=== PATIENT | male | born 1935 | race Caucasian/White ===

== ENCOUNTER 2016-07-27 16:27 | Observation (INO) ==
[2016-07-27] MEDS ORDERED: Aspirin 81 MG TAB.CHEW PO ONE (16:42)
[2016-07-27] MEDS ORDERED: Nitroglycerin 1 INCH/GM PACKET TP ONE (16:43)
--- NOTE | 2016-07-27 16:47 | Emergency Department Note ---
Disposition Clinical Impression: Chest pain Qualifiers: Chest pain type: unspecified Qualified Code(s): R07.9 - Chest pain, unspecified Hypertension Qualifiers: Hypertension type: unspecified secondary hypertension Qualified Code(s): I15.9 - Secondary hypertension, unspecified Disposition: Admitted As Inpatient Condition: Fair Referrals: Stef Javier DO [Primary Care Provider] - Forms: Work/School Release, ED Satisfaction Letter Time of Disposition: 18:20 Chest Pain HPI - General Chief Complaint: ED General Medical Stated Complaint: High BP Time Seen by Provider: 07/27/16 16:37 Source: patient Mode of arrival: ambulatory Limitations: no limitations Vital Signs Reviewed: Yes Nursing Notes Reviewed: Yes - History of Present Illness HPI Narrative: 80-year-old male with a history of previous stent who comes in complaining of some intermittent chest pain. Patient states he had to take 3 nitros with some improvement in his pain. Son relates that this is what happened prior to him requiring stent placement. Pt complaint: chest pain Onset (ago): day(s) Duration: intermittent Onset: during rest Pain Location: substernal, left chest Severity scale (1-10): 8 Quality: tightness, aching Pain Radiation: none Improves with: nitroglycerin Worsens with: nothing Treatments prior to arrival chest pain: nitroglycerin - Related Data Home Medications Medication Instructions Recorded Confirmed Ranitidine HCl [Acid Audiology Assistant] 150 mg PO DAILY 06/10/16 06/10/16 Previous Rx's Medication Instructions Recorded Aspirin 81 mg PO DAILY tab.chew 06/13/16 Clopidogrel [Plavix] 75 mg PO DAILY #30 tablet 06/13/16 Lisinopril [Zestril] 5 mg PO DAILY #30 tablet 06/13/16 Metoprolol XL (24 HR) Succ [Toprol 50 mg PO DAILY #30 tab.er.24h 06/13/16 Xl] Nitroglycerin 0.4 mg SL PRN PRN #30 tab.subl 06/13/16 Allergies Allergy/AdvReac Type Severity Reaction Status Date / Time Aympncx-Opt-Gfr Reductase Allergy Intermediate Itching Verified 06/10/16 13:22 Inhibitor [Statins] cephalexin [From Keflex] Allergy Itching Verified 06/10/16 13:22 Constitutional: Denies: fever, chills, weakness, weight change Eyes: Denies: eye pain, eye discharge, vision change ENT ED: Denies: ear pain, throat pain, dental pain, hearing loss, epistaxis, congestion, dysphagia Cardiovascular: Reports: chest pain. Denies: palpitations, dyspnea on exertion , edema, syncope Respiratory: Denies: cough, dyspnea, wheezes, hemoptysis, stridor Gastrointestinal: Denies: abdominal pain, nausea, vomiting, diarrhea, constipation, hematemesis, melena, hematochezia Genitourinary: Denies: urgency, dysuria, frequency, hematuria Musculoskeletal: Denies: back pain, neck pain, arthralgia, myalgia Integumentary: Denies: rash, abrasion, lesions Neurological: Reports: headache. Denies: weakness, numbness, paresthesias, confusion, abnormal gait, vertigo Psychiatric: Denies: anxiety, depression, suicidal thoughts, homicidal thoughts , auditory hallucinations, visual hallucinations Endocrine: Denies: fatigue Hematological/Lymphatic: Denies: easy bleeding, easy bruising Allergic/Immunologic: Denies: facial swelling, urticaria Chest Pain PMH - Past Medical History Medical history: Reports: coronary artery disease, hyperlipidemia, hypertension , thyroid disease Surgical history: Reports: appendectomy, coronary bypass (CABG), herniorrhaphy Psychiatric history: Reports: no psych history - Social History Smoking Status: Never smoker Alcohol use: Reports: none Drug use: Reports: none Physical Exam - General Limitations: no limitations General appearance: alert, in no apparent distress - Head Head exam: atraumatic, normocephalic, normal inspection - Eye Eye exam: Present: normal appearance, PERRL, EOMI - ENT ENT exam: normal exam, normal oropharynx, mucous membranes moist - Neck Neck exam: Present: normal inspection, full ROM, trachea midline - Chest Chest inspection: Present: normal inspection, symmetric chest wall rise - Respiratory Respiratory exam: Present: normal lung sounds bilaterally - Cardiovascular Cardiovascular exam: Present: regular rate, normal rhythm, normal heart sounds - Abdominal Exam Abdominal exam: Present: soft, Non-Tender. Absent: tenderness, distention, guarding, rebound, rigidity - Extremities Exam Extremities exam: Present: normal inspection, full ROM. Absent: tenderness, pedal edema - Expanded Lower Extremity Exam Neurovascular/Tendon exam: Absent: motor deficit, sensory deficit, tendon deficit Gait: not tested/not observed - Back Exam Back exam: Present: normal inspection, full ROM. Absent: tenderness - Neurological Exam Neurological exam: Present: alert, oriented X3 - Psychiatric Psychiatric exam: Present: normal affect, normal mood - Skin Skin exam: Present: warm, dry, intact, normal color Course - Consultations Consultation #1: Discussed with Dr. Winters, admit. Time: 18:37 Consultation #2: Discussed with , would not heparinize him now would get his blood pressure under better control and would consider heparin then. Time: 18:42 Consultation #3: I discussed case with , and she requested 10 mg of hydralazine IV. Time: 18:49 Vital Signs Temperature 97.5 F L 07/27/16 16:31 Pulse Rate 87 07/27/16 16:31 Respiratory Rate 18 07/27/16 16:31 Blood Pressure 215/116 07/27/16 16:31 O2 Sat by Pulse Oximetry 97 07/27/16 16:31 Temperature 97.5 F L 07/27/16 16:31 Pulse Rate 75 07/27/16 18:34 Respiratory Rate 16 07/27/16 18:34 Blood Pressure 180/101 07/27/16 18:34 O2 Sat by Pulse Oximetry 97 07/27/16 18:34 Oxygen Delivery Oxygen Delivery Room Air Chest Pain - Lab Data Lab results reviewed: Yes I reviewed the patient's lab results. Result diagrams: 07/27/16 16:51 07/27/16 16:51 Lab Results 07/27/16 07/27/16 07/27/16 Range/Units 16:51 16:51 16:51 WBC 7.8 (4.3-11.1) K/mcL RBC 5.28 (4.19-5.50) M/mcL Hgb 16.1 (12.9-16.9) g/dL Hct 48.5 (37.5-50.1) % MCV 91.9 (83.0-100.0) fL MCH 30.5 (28.0-33.3) pg MCHC 33.2 (31.6-35.5) g/dL RDW 12.3 (11.5-14.5) % Plt Count 241 (140-400) K/mcL MPV 10.9 (9.4-12.4) fL Immature Gran % 0.3 (0-4) % Seg Neutrophils % 70.7 % Lymphocytes % 20.4 % Monocytes % 7.6 % Eosinophils % 0.4 % Basophils % 0.6 % Neutrophils # 5.5 (1.6-8.9) K/mcL Lymphocytes # 1.6 (0.6-4.6) K/mcL Monocytes # 0.6 (0.0-1.3) K/mcL Eosinophils # 0.0 (0.0-0.6) K/mcL Basophils # 0.1 (0.0-0.2) K/mcL PT 13.4 H (9.4-12.1) Seconds INR 1.2 APTT 30.8 (26.0-36.0) Seconds Sodium (136-145) mEq/L Potassium (3.5-4.5) mEq/L Chloride (98-109) mEq/L Carbon Dioxide (19-29) mEq/L BUN (8-26) mg/dL Creatinine (0.72-1.25) mg/dL Est GFR ( Amer) (> 60) Est GFR (Non-Af Amer) (> 60) BUN/Creatinine Ratio (6-26) Glucose (70-99) mg/dL Calculated Osmolality (280-300) Calcium (8.6-10.8) mg/dL Troponin I (0-0.03) ng/mL B-Natriuretic Peptide 200 H (0-100) pg/mL 07/27/16 07/27/16 Range/Units 16:51 16:51 WBC (4.3-11.1) K/mcL RBC (4.19-5.50) M/mcL Hgb (12.9-16.9) g/dL Hct (37.5-50.1) % MCV (83.0-100.0) fL MCH (28.0-33.3) pg MCHC (31.6-35.5) g/dL RDW (11.5-14.5) % Plt Count (140-400) K/mcL MPV (9.4-12.4) fL Immature Gran % (0-4) % Seg Neutrophils % % Lymphocytes % % Monocytes % % Eosinophils % % Basophils % % Neutrophils # (1.6-8.9) K/mcL Lymphocytes # (0.6-4.6) K/mcL Monocytes # (0.0-1.3) K/mcL Eosinophils # (0.0-0.6) K/mcL Basophils # (0.0-0.2) K/mcL PT (9.4-12.1) Seconds INR APTT (26.0-36.0) Seconds Sodium 135 L (136-145) mEq/L Potassium 4.1 (3.5-4.5) mEq/L Chloride 99 (98-109) mEq/L Carbon Dioxide 25 (19-29) mEq/L BUN 16 (8-26) mg/dL Creatinine 1.04 (0.72-1.25) mg/dL Est GFR ( Amer) > 60 (> 60) Est GFR (Non-Af Amer) > 60 (> 60) BUN/Creatinine Ratio 15 (6-26) Glucose 107 H (70-99) mg/dL Calculated Osmolality 282 (280-300) Calcium 9.8 (8.6-10.8) mg/dL Troponin I 0.08 H* (0-0.03) ng/mL B-Natriuretic Peptide (0-100) pg/mL - Radiology Data Radiology results reviewed: Yes I reviewed the patient's radiology results. Chest X-Ray 07/27/16 16:42 IMPRESSION: Negative portable chest. D/ / Livan Whitaker MD / Livan Whitaker MD Interpreting Provider: Livan Whitaker MD Head CT 07/27/16 16:43 IMPRESSION: No acute intracranial abnormality. D/ / Seda Paredes MD / Seda Paredes MD Interpreting Provider: Seda Paredes MD - EKG Data EKG attestation: Yes I reviewed and interpreted this EKG. EKG shows normal: sinus rhythm Rate: normal Rhythm: NSR Mounds/QRS: RBBB When compared to previous EKG there are: no significant changes (06/12/16) Interpretation: no acute changes Heart Score - Score History: Moderately Suspicious EKG: Non Specific repolarisation Disturbance Age: Greater than 65 Risk Factors: Equal/Greater than 3 risk factor or history of atherosclerotic disease Troponin: 1-3x normal limit HEART Score Total: 7
[2016-07-27 17:53] LABS: Basophils # 0.1 K/mcL (0.0-0.2); Basophils % 0.6 %; Eosinophils % 0.4 %; Hematocrit 48.5 % (37.5-50.1); Hemoglobin 16.1 g/dL (12.9-16.9); Immature Granulocytes % 0.3 % (0-4); Lymphocytes # 1.6 K/mcL (0.6-4.6); Lymphocytes % 20.4 %; Mean Corpuscular HGB Conc 33.2 g/dL (31.6-35.5); Mean Corpuscular Hemoglobin 30.5 pg (28.0-33.3); Mean Corpuscular Volume 91.9 fL (83.0-100.0); Mean Platelet Volume 10.9 fL (9.4-12.4); Monocytes # 0.6 K/mcL (0.0-1.3); Monocytes % 7.6 %; Neutrophils # 5.5 K/mcL (1.6-8.9); Platelet Count 241 K/mcL (140-400); Red Blood Count 5.28 M/mcL (4.19-5.50); Red Cell Distribution Width 12.3 % (11.5-14.5); Segmented Neutrophils % 70.7 %
[2016-07-27 17:57] LABS: INR 1.2; Prothrombin Time 13.4 Seconds (9.4-12.1)
[2016-07-27 18:00] LABS: Activated Partial Thrombo Time 30.8 Seconds (26.0-36.0)
[2016-07-27 18:12] LABS: BUN/Creatinine Ratio 15 (6-26); Blood Urea Nitrogen 16 mg/dL (8-26); Calcium 9.8 mg/dL (8.6-10.8); Carbon Dioxide 25 mEq/L (19-29); Chloride 99 mEq/L (98-109); Glucose 107 mg/dL (70-99); Osmolality,Calculated 282 (280-300); Potassium 4.1 mEq/L (3.5-4.5); Sodium 135 mEq/L (136-145); eGFR For African Americans > 60 (> 60); eGFR For Non-African Americans > 60 (> 60)
[2016-07-27] MEDS ORDERED: *HR* Morphine 2 MG/ML SYRINGE IVP PRN (19:22)
[2016-07-27] MEDS ORDERED: Ondansetron 4 MG/2 ML VIAL IVP PRN (19:22)
[2016-07-27] MEDS ORDERED: Naloxone 0.4 MG/ML INJ IVP PRN (19:22)
[2016-07-27] MEDS ORDERED: Nitroglycerin 0.4 MG TAB.SUBL SL PRN (19:24)
--- NOTE | 2016-07-27 20:00 | Internal Med History&Physical ---
Date of Encounter: 07/27/16 Time of Encounter: 19:00 Assessment and Plan (1) Hypertensive urgency Current visit: Yes Status: Acute Blood pressure improved after hydralazine 10 mg IV We will continue to closely monitor Increased home dose of lisinopril to 10 mg by mouth daily Continue metoprolol 50 mg by mouth daily Reevaluate home anti-hypertensive medications prior to discharge Continue hydralazine 10 mg IV q6h PRN SBP>160 and DBP>100 (2) Elevated troponin Current visit: Yes Status: Acute No EKG changes noted Can be secondary to type II TN However given significant cardiac history we will closely monitor Follow-up serial troponins Serial EKGs Cardiology consult placed by the ER physician As per cardiology- hold off on anticoagulation due to elevated blood pressure (3) Chest pain Current visit: Yes Status: Acute Resolved at this time Continue nitroglycerin sublingual Plan as listed above Qualifiers: Chest pain type: unspecified Qualified Code(s): R07.9 - Chest pain, unspecified (4) GERD (gastroesophageal reflux disease) Current visit: Yes Status: Chronic Continue home medications Qualifiers: Esophagitis presence: without esophagitis Qualified Code(s): K21.9 - Gastro -esophageal reflux disease without esophagitis (5) DVT prophylaxis Current visit: Yes Status: Acute Heparin subcutaneous (6) CAD (coronary artery disease) Current visit: No Status: Chronic Plan as listed above Qualifiers: Coronary Disease-Associated Artery/Lesion type: [place] artery [place] vs. transplanted heart: [place] heart Associated angina: with unstable angina Qualified Code(s): I25.110 - Atherosclerotic heart disease of [place] coronary artery with unstable angina pectoris Internal Medicine - H&P: HPI Chief complaint: chest pain/headache Admitted From: Home Plans for Post Hospital Care: Home History of present illness: Mr. Lowry is a 80 year old male with past medical history of CAD status post CABG 4 in 1997 and status post PCI in May 2016, and hypertension, who presents to the ER for evaluation of headache. Patient states earlier during the day, he had to take nitroglycerin 3 times due to chest pain with resolution of his chest pain, however he felt a diffuse headache and noted to have significantly elevated blood pressure due to which he decided to come to the ER. He reports of chronically having high blood pressure despite the adjustment of his blood pressure medications upon discharge from the hospital about a month ago. In the ER patient was noted to have elevated troponins and significantly elevated blood pressure. During my evaluation, patient complained of diffuse headache however denied any chest pain, palpitations, shortness of breath, nausea, or vomiting. He was given 1 dose of lisinopril and one dose of IV hydralazine, with improvement in his blood pressure, and improvement in his headache. At this time he is resting comfortably in bed, denies any lightheadedness, dizziness, vision changes, chest pain, shortness of breath, abdominal pain, nausea, vomiting, fever, or chills. Social history: No smoking, alcohol or illicit drug use Past Med Surg Social Fam HX - Past Medical History Medical history: coronary artery disease, GERD, hyperlipidemia, hypertension Psychiatric history: no psych history - Past Surgical History Surgical History: appendectomy, coronary bypass (CABG), herniorrhaphy - Social History Smoking Status: Never smoker Smokeless Tobacco Status: No Alcohol use: none Drug use: none - Family History Father Living Status: Hx Family Cardiac Disorders: No Hx Family Respiratory Disorders: No Hx Family Cancer: Yes Hx Family GI Disorders: Yes (hepatic cancer) Hx Family Genitourinary Disorders: No Hx Family Endocrine Disorder: No Hx Family Musculoskeletal Disorders: No Hx Family Neuromuscular Disorders: No Hx Family Neurologic Disorders: No Hx Family HEENT Disorders: No Hx Family Autoimmune Disorders: No Hx Family Reproductive Disorders: No Hx Family Psychosocial Disorders: No Hx Family Medical Disorders: No Internal Medicine - H&P: Meds Ranitidine HCl [Acid Bookkeeping Clerk] 150 mg PO DAILY 06/10/16 [History] Aspirin 81 mg PO DAILY tab.chew 06/13/16 [Rx] Clopidogrel [Plavix] 75 mg PO DAILY #30 tablet 06/13/16 [Rx] Lisinopril [Zestril] 5 mg PO DAILY #30 tablet 06/13/16 [Rx] Metoprolol XL (24 HR) Succ [Toprol Xl] 50 mg PO DAILY #30 tab.er.24h 06/13/16 [ Rx] Nitroglycerin 0.4 mg SL PRN PRN #30 tab.subl 06/13/16 [Rx] Allergies [id number]-[id number] Reductase Inhibitor [Statins] Allergy (Intermediate, Verified 13:22) Itching cephalexin [From Keflex] Allergy (Verified 06/10/16 13:22) Itching All Systems PM: A 10-system review of systems was performed and is negative for pertinent findings except as documented above in the HPI. - Constitutional Constitutional: as per HPI - Constitutional Vitals: Temp Pulse Resp BP Pulse Ox 98.0 F 81 16 179/85 99 07/27/16 19:34 07/27/16 19:34 07/27/16 19:34 07/27/16 19:34 07/27/16 19:34 General appearance: Present: cooperative, A&O X 3, pleasant, no acute distress, obese, answers questions appropriately - Head Head exam: Present: atraumatic, normocephalic - Eye Eye exam: Present: PERRL, conjuntiva pink, sclera anicteric - Respiratory Respiratory exam: Present: CTAB. Absent: accessory muscle use, rales, rhonchi, wheezes - Cardiovascular Cardiovascular exam: Present: RRR, +S1, +S2. Absent: diastolic murmur, gallop, rubs, systolic murmur - GI/Abdominal GI/Abdominal exam: Present: normal bowel sounds, soft, no peritoneal signs. Absent: distended, tenderness - Extremities Exam Extremities exam: Present: warm, radial pulses palpable and symetrical. Absent : calf tenderness, cyanotic, pedal edema - Neurological Exam Neurological exam: Present: alert, oriented X3, no focal deficits - Psychiatric Psychiatric exam: Present: normal affect, normal mood Internal Med - H&P Results - Labs CBC & Chem 7: 07/27/16 16:51 07/27/16 16:51
[2016-07-27] MEDS: Acetaminophen 325 MG TABLET PO PRN (21:26)
[2016-07-28 05:15] LABS: Basophils # 0.1 K/mcL (0.0-0.2); Basophils % 0.8 %; Eosinophils # 0.1 K/mcL (0.0-0.6); Eosinophils % 1.2 %; Hematocrit 44.1 % (37.5-50.1); Hemoglobin 14.9 g/dL (12.9-16.9); Immature Granulocytes % 0.6 % (0-4); Lymphocytes # 1.4 K/mcL (0.6-4.6); Lymphocytes % 21.3 %; Mean Corpuscular HGB Conc 33.8 g/dL (31.6-35.5); Mean Corpuscular Hemoglobin 30.4 pg (28.0-33.3); Mean Platelet Volume 10.7 fL (9.4-12.4); Monocytes # 0.6 K/mcL (0.0-1.3); Monocytes % 9.5 %; Neutrophils # 4.4 K/mcL (1.6-8.9); Platelet Count 201 K/mcL (140-400); Red Cell Distribution Width 12.3 % (11.5-14.5); Segmented Neutrophils % 66.6 %
[2016-07-28 05:32] LABS: BUN/Creatinine Ratio 17 (6-26); Blood Urea Nitrogen 14 mg/dL (8-26); Calcium 9.1 mg/dL (8.6-10.8); Carbon Dioxide 25 mEq/L (19-29); Chloride 102 mEq/L (98-109); Glucose 96 mg/dL (70-99); Magnesium 2.1 mg/dL (1.6-2.6); Osmolality,Calculated 282 (280-300); Phosphorous 3.9 mg/dL (2.3-4.7); Potassium 3.7 mEq/L (3.5-4.5); Sodium 136 mEq/L (136-145); eGFR For African Americans > 60 (> 60); eGFR For Non-African Americans > 60 (> 60)
[2016-07-28] MEDS ORDERED: *HR* Heparin 5,000 UNIT/ML VIAL SQ SCH (06:00)
[2016-07-28] MEDS ORDERED: Metoprolol XL (24 HR) Succ 50 MG TAB.ER.24H PO SCH ×2 (09:00→21:00)
[2016-07-28] MEDS ORDERED: Aspirin 81 MG TAB.CHEW PO SCH (09:00)
[2016-07-28] MEDS ORDERED: Famotidine 20 MG TABLET PO SCH (09:00)
[2016-07-28] MEDS: Acetaminophen 325 MG TABLET PO PRN (09:14)
--- NOTE | 2016-07-28 11:11 | Cardiology Consult Note ---
<Cash Glez - Last Filed: 07/28/16 12:33> Date of Encounter: 07/28/16 Time of Encounter: 11:15 Assessment and Plan (1) Hypertensive urgency Status: Acute Per Cardiology: Patient reports systolic blood pressures in the 200s. Blood pressures noted to be in the 180s upon arrival. Currently better controlled in the 160's. Continue to optimize medical regimen for BP control. Suspect contributing factor to chest pain symptoms and mild troponin elevation. (2) Chest pain Status: Acute Per Cardiology: Occurring at rest in setting of elevated blood pressures. Qualifiers: Chest pain type: unspecified Qualified Code(s): R07.9 - Chest pain, unspecified (3) Elevated troponin I level Status: Acute Per Cardiology: Troponins 0.08 3, flat and adynamic. Upon review, peak troponin 0.09 February 2015 and peak troponin in setting of his acute CT 5.May. Do not suspect non-STEMI, suspect demand ischemia in setting of hypertensive urgency. No need for cardiac rehabilitation consult at this time. We discussed potential further ischemic evaluation in terms of ST vs echo vs LHC. I had lengthy discussion today with patient and at this point he prefers medical management. Will add Imdur 30mg PO daily. We'll sign off, follow-up in outpatient setting. Discussed and reviewed with Dr. Stevenson. (4) CAD (coronary artery disease) Status: Chronic Per Cardiology: Last heart catheterization June 09, 2016 with EF 45%, patent 2/4 bypass grafts-- patent SVG to OM 2 and patent FIGUEROA to LAD. Had occluded SVG to RCA and occluded SVG to ramus. Underwent staged PCI of SVG to ramus on June 11, 2016. On aspirin, Plavix, beta yvon, ONOFRE inhibitor, and now on low-dose statin therapy with no complications (previous allergy listed to statins). Again , we will add long-acting nitrate. Qualifiers: Coronary Disease-Associated Artery/Lesion type: [place] artery [place] vs. transplanted heart: [place] heart Associated angina: with unstable angina Qualified Code(s): I25.110 - Atherosclerotic heart disease of [place] coronary artery with unstable angina pectoris Discussion w patient/family: The assessment and plan as outlined above was discussed with the patient and/or family members who expressed understanding and agreement. All questions were answered. Thank you for involving us in the care of your patient. Please call with any questions. History of Present Illness Consult date: 07/28/16 Requesting physician: Patrick Garza Consult reason: CP, Elevated Troponin Chief complaint: High blood pressures, CP History of present illness: Mr. 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 Last seen by Dr. Greene June 2016 with increased dose of beta yvon and ONOFRE inhibitor at that time for stable angina and hypertension. Patient reports he presented due to worsening blood pressures with systolic blood pressures in the 200s at home with a headache. He reports compliance with medications. He reports symptoms now resolved. He does report additionally has been having intermittent chest pressure to his left midsternal region that seems to correlate with elevated blood pressures. He reports he took sublingual nitroglycerin with relief of symptoms. Denies any palpitations, dizziness, syncope, falls. Denies any active bleeding or blood loss. Denies any other concerns. Past Med Surg Social Fam HX - Past Medical History Attestation: Yes The following information was validated with the patient. Source: patient, old records reviewed Medical history: coronary artery disease, GERD, hyperlipidemia, hypertension Psychiatric history: no psych history - Past Surgical History Surgical History: appendectomy, coronary bypass (CABG), herniorrhaphy - Social History Smoking Status: Never smoker Smokeless Tobacco Status: No Alcohol use: none Drug use: none - Family History Father Living Status: Hx Family Cardiac Disorders: No Hx Family Respiratory Disorders: No Hx Family Cancer: Yes Hx Family GI Disorders: Yes (hepatic cancer) Hx Family Genitourinary Disorders: No Hx Family Endocrine Disorder: No Hx Family Musculoskeletal Disorders: No Hx Family Neuromuscular Disorders: No Hx Family Neurologic Disorders: No Hx Family HEENT Disorders: No Hx Family Autoimmune Disorders: No Hx Family Reproductive Disorders: No Hx Family Psychosocial Disorders: No Hx Family Medical Disorders: No Medications and Allergies Aspirin 81 mg PO DAILY tab.chew 06/13/16 [Rx] Clopidogrel [Plavix] 75 mg PO DAILY #30 tablet 06/13/16 [Rx] Amlodipine [Norvasc] 10 mg PO DAILY 07/28/16 [History] Atorvastatin Calcium [Lipitor] 20 mg PO DAILY 07/28/16 [History] Hydrochlorothiazide [Hydrochlorothiazide] 25 mg PO DAILY 07/28/16 [History] Isosorbide MONOnitrate (24 HR) [Imdur] 30 mg PO DAILY #30 tab.er.24h 07/28/16 [ Rx] Lisinopril [Zestril] 40 mg PO DAILY #30 tablet 07/28/16 [Rx] Metoprolol Succinate [Toprol Xl] 50 mg PO BID 07/28/16 [History] Allergies Ilqdatw-Baq-Sai Reductase Inhibitor [Statins] Allergy (Intermediate, Verified 13:22) Itching cephalexin [From Keflex] Allergy (Verified 06/10/16 13:22) Itching All Systems Review: A 10-system review of systems was performed and is negative for pertinent findings except as documented above in the HPI. - Cardiovascular Cardiovascular: as per HPI, chest pain at rest Physical Examination Vital Signs, Last 4 Hours Temp Pulse Resp BP Pulse Ox 07/28/16 10:36 92 165/76 07/28/16 09:40 97.8 F 106 16 184/92 97 General: Conversant, No Apparent Distress HEENT: Atraumatic, Normocephaly, Mucus Membranes Moist Neck: No JVD, Normal carotid pulses Cardiac: Reg Rate and Rhythm, Normal S1 and S2, No Murmur Lungs: Normal Breath Sounds, No Wheeze, Rales, Rhonchi Neuro: Alert and responsive, No focal deficits noted Abdomen: Soft, Non-Tender Skin: No rashes noted on visualized skin Musculoskeletal: No Chest Wall Tenderness Extremities: No Edema, Normal Pulses Results 07/28/16 04:23 07/28/16 04:23 Lab Results Laboratory Tests 02/16/15 06/10/16 07/27/16 03:37 04:26 16:51 INR 1.2 Troponin I 0.23 H* 5.84 H* B-Natriuretic Peptide 07/27/16 07/27/16 07/27/16 16:51 16:51 22:59 INR Troponin I 0.08 H* 0.08 H* B-Natriuretic Peptide 200 H 07/28/16 04:23 INR Troponin I 0.08 H* B-Natriuretic Peptide ITS Impressions Chest X-Ray 07/27/16 16:42 IMPRESSION: Negative portable chest. D/ / Livan Whitaker MD / Livan Whitaker MD Interpreting Provider: Livan Whitaker MD Head CT 07/27/16 16:43 IMPRESSION: No acute intracranial abnormality. D/ / Seda Paredes MD / Seda Paredes MD Interpreting Provider: Seda Paredes MD Active Medications Acetaminophen (Tylenol) 650 mg PO Q6HR PRN PRN Reason: pain/headache Stop: 01/26/17 19:51 Last Admin: 07/28/16 09:14 Dose: 650 mg Aspirin (Aspirin) 81 mg PO DAILY [facility] Stop: 01/27/17 09:01 Last Admin: 07/28/16 09:15 Dose: 81 mg Clopidogrel Bisulfate (Plavix) 75 mg PO DAILY [facility] Stop: 01/27/17 09:01 Last Admin: 07/28/16 09:15 Dose: 75 mg Famotidine (Pepcid) 20 mg PO DAILY [facility] Stop: 01/27/17 09:01 Last Admin: 07/28/16 09:15 Dose: 20 mg Heparin Sodium (Porcine) (Heparin) 5,000 unit SQ Q12HR [facility] Stop: 01/27/17 06:01 Last Admin: 07/28/16 03:35 Dose: Not Given Hydralazine HCl (Hydralazine) 10 mg IVP Q6HR PRN PRN Reason: Hypertension Stop: 01/26/17 19:28 Last Admin: 07/28/16 09:41 Dose: 10 mg Lisinopril (Zestril) 10 mg PO DAILY [facility] PRN Reason: Protocol Stop: 01/27/17 09:01 Last Admin: 07/28/16 09:15 Dose: 10 mg Metoprolol Succinate (Toprol Xl) 50 mg PO BID [facility] Stop: 01/27/17 21:01 Morphine Sulfate (Morphine Sulfate) 2 mg IVP Q4HR PRN PRN Reason: Severe Pain (7-10) Stop: 01/26/17 19:23 Naloxone HCl (Narcan) 0.4 mg IVP Q2MIN PRN PRN Reason: Opioid Reversal Stop: 01/26/17 19:23 Nitroglycerin (Nitroglycerin) 0.4 mg SL AD PRN PRN Reason: CHEST PAIN Stop: 01/26/17 19:25 Ondansetron HCl (Zofran) 4 mg IVP Q6HR PRN PRN Reason: Nausea And Vomiting Stop: 01/26/17 19:23 - Imaging and Cardiology Chest Xray: report reviewed Cardiac cath: report reviewed - EKG Interpretation EKG results cardiology: personally reviewed, sinus rhythm (Sinus rhythm with first-degree AV block and right bundle branch block, comparable to previous ECG) Consult Discharge Plan - Plan Instructions: Chest Pain (DC) Referrals: Stef Javier, [Primary Care Provider] - ( Patient has been instructed to call the office Friday morning and request a hospital f/u in 5-7 days. Thank you) Prescriptions: Isosorbide MONOnitrate (24 HR) [Imdur] 30 mg PO DAILY #30 tab.er.24h Lisinopril [Zestril] 40 mg PO DAILY #30 tablet <Treasure Stevenson - Last Filed: 07/28/16 16:30> Date of Encounter: 07/28/16 Assessment and Plan Discussion w patient/family: The assessment and plan as outlined above was discussed with the patient and/or family members who expressed understanding and agreement. All questions were answered. Thank you for involving us in the care of your patient. Please call with any questions. History of Present Illness History of present illness: Mr. Lowry is a 80 year old male All Systems Review: A 10-system review of systems was performed and is negative for pertinent findings except as documented above in the HPI. Physical Examination Vital Signs, Last 4 Hours Temp Pulse Resp BP Pulse Ox 07/28/16 14:36 97.8 F 96 14 108/66 98 Results 07/28/16 04:23 07/28/16 04:23 Lab Results 07/27/16 07/28/16 07/28/16 22:59 04:23 04:23 WBC 6.6 Hgb 14.9 Hct 44.1 Plt Count 201 Sodium 136 Potassium 3.7 Chloride 102 Carbon Dioxide 25 BUN 14 Creatinine 0.82 Glucose 96 Calcium 9.1 Magnesium 2.1 Troponin I 0.08 H* 07/28/16 04:23 WBC Hgb Hct Plt Count Sodium Potassium Chloride Carbon Dioxide BUN Creatinine Glucose Calcium Magnesium Troponin I 0.08 H* - Attending Attestation Patient was discharged before I was able to evaluate him. He was discussed in detail with myself and Cash Glez CNP. The patient presented with hypertensive urgency associated with angina. 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
[2016-07-28] MEDS ORDERED: Isosorbide MONOnitrate (24 HR) 30 MG TAB.ER.24H PO SCH (12:00)
[2016-07-28 14:36] VITALS: BP 108/66
--- NOTE | 2016-07-28 14:48 | Discharge Summary ---
Date of Encounter: 07/28/16 Time of Encounter: 09:30 - Discharge Diagnosis (1) Hypertensive urgency Priority: Primary Status: Resolved Comments: Resolved (2) Chest pain Priority: Secondary Status: Acute Qualifiers: Chest pain type: unspecified Qualified Code(s): R07.9 - Chest pain, unspecified (3) DVT prophylaxis Priority: Secondary Status: Acute (4) Elevated troponin Priority: Secondary Status: Acute (5) GERD (gastroesophageal reflux disease) Priority: Secondary Status: Chronic Qualifiers: Esophagitis presence: without esophagitis Qualified Code(s): K21.9 - Gastro -esophageal reflux disease without esophagitis (6) CAD (coronary artery disease) Priority: Secondary Status: Chronic Qualifiers: Coronary Disease-Associated Artery/Lesion type: [place] artery [place] vs. transplanted heart: [place] Associated angina: with unstable angina Qualified Code(s): I25.110 - Atherosclerotic heart disease of [place] coronary artery with unstable angina pectoris - Discharge Medications Prescriptions: Isosorbide MONOnitrate (24 HR) [Imdur] 30 mg PO DAILY #30 tab.er.24h Home Medications: Ranitidine HCl [Acid Director Of Promotions] 150 mg PO DAILY 06/10/16 [History] Aspirin 81 mg PO DAILY tab.chew 06/13/16 [Rx] Clopidogrel [Plavix] 75 mg PO DAILY #30 tablet 06/13/16 [Rx] Lisinopril [Zestril] 5 mg PO DAILY #30 tablet 06/13/16 [Rx] Metoprolol XL (24 HR) Succ [Toprol Xl] 50 mg PO DAILY #30 tab.er.24h 06/13/16 [ Rx] Nitroglycerin 0.4 mg SL PRN PRN #30 tab.subl 06/13/16 [Rx] Isosorbide MONOnitrate (24 HR) [Imdur] 30 mg PO DAILY #30 tab.er.24h 07/28/16 [ Rx] Allergies/Adverse Reactions: Allergies Cnhfexx-Zzo-Mao Reductase Inhibitor [Statins] Allergy (Intermediate, Verified 13:22) Itching cephalexin [From Keflex] Allergy (Verified 06/10/16 13:22) Itching Procedures/tests Complete & Pending: Procedures Performed prior 72 hours Category Date Time Status ECG 12 lead ECG [ECG] AM 0600 Y 07/28/16 06:00 Ordered Date of admission: 07/27/16 18:52 Primary care physician: Stef Javier, Consults: 07/27/16 19:23 Consult to Physician [CONS] Routine Consulting Provider: Treasure Stevenson Reason for Consult: chest pain Call Completed: Yes Discharging clinician: Patrick Garza Anticipated date of discharge: 07/28/16 - Patient Status Disposition: Home, Self-Care Condition: Good Functional capacity at discharge: independent ambulation Overall status at discharge: patient is back to baseline - Discharge Instructions Instructions: Chest Pain (DC) Follow Up With: Stef Javier, [Primary Care Provider] - (In 1-2 weeks) - Diet and Activity Activity: increase activity as tolerated Diet: low fat, low cholesterol, low salt diet Hospital course: Mr. Lowry is a 80 year old male with history of coronary artery disease and hypertension who was admitted here with hypertensive urgency. Patient had been having severely elevated blood pressure with systolic blood pressures in the 200s with complaints of chest pain and headache. He was treated with intravenous hydralazine with good improvement in his blood pressure. He was then placed back on his usual medications and his medication regimen was adjusted. Presently his blood pressure has much improved and his hypertensive urgency has resolved. His chest pain has also subsided. Patient's troponin levels were slightly elevated at 0.08. Patient has chronic troponin elevation and his troponins here have been at 0.083. Ideology was consulted. They recommended continuing his home medications and adding Imdur to his medication regimen. No other acute management is necessary at this time. 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 - Time Spent with Patient Total time spent providing and/or coordinating discharge services: Less than 30 minutes (25 min) - Constitutional Vitals: Temp Pulse Resp BP Pulse Ox 97.8 F 96 14 108/66 98 07/28/16 14:36 07/28/16 14:36 07/28/16 14:36 07/28/16 14:36 07/28/16 14:36 General appearance: Present: cooperative, A&O X 3, pleasant, no acute distress, obese, answers questions appropriately - Respiratory Respiratory exam: Present: CTAB. Absent: accessory muscle use, rales, rhonchi, wheezes - Cardiovascular Cardiovascular exam: Present: RRR, +S1, +S2. Absent: diastolic murmur, gallop, rubs, systolic murmur - GI/Abdominal GI/Abdominal exam: Present: normal bowel sounds, soft, no peritoneal signs. Absent: distended, tenderness - Extremities Exam Extremities exam: Present: warm, radial pulses palpable and symetrical. Absent : calf tenderness, cyanotic, pedal edema - Neurological Exam Neurological exam: Present: CN II-XII intact, oriented X3, no focal deficits. Absent: facial droop, speech deficit - Skin Skin exam: Present: dry, intact - Attending Attestation This document has been at least partially created by [employer] recognition technology by Dr. Garza. Errors in grammar, wording or other phrases may exist. If errors are found after the documentation is signed, they will be addressed individually in the addendum section of this document when appropriate.
--- NOTE | 2016-07-29 12:23 | Electrocardiograph Report ---
[facility] Test Date: 2016-07-27 Pat Name: Aniket Lowry Department: 102 Room: 3A23 Gender: M Admissions Specialist: Nick : [id number] Requested By: Jasper Boss Order Number: [id number] Reading MD: David Edwards DO Measurements Intervals [place] Rate: 86 P: 64 [place]: 234 QRS: 38 QRSD: 149 T: 2 QT: 391 QTc: 435 Interpretive Statements Sinus rhythm with a first degree AV block Right bundle branch block Electronically Signed On 07-29-16 12:21:53 EST by David Edwards DO
== END 2016-07-28 15:36 | disposition home or self-care (01) ==
LOC: 3ANU 16:27 → EMEROO 16:27 → 3ANU 19:16
PROVIDERS: ADMIT Internal Medicine; ATTEND Internal Medicine

== ENCOUNTER 2018-05-05 00:11 | Observation (INO) ==
[2018-05-05] MEDS ORDERED: Naloxone 0.4 MG/ML INJ IVP PRN ×2 (02:46→05:25)
[2018-05-05] MEDS ORDERED: *HR* Metoprolol 5 MG/5 ML VIAL IVP ONE (02:49)
[2018-05-05] MEDS ORDERED: *HR* Heparin 5,000 UNIT/ML VIAL IVP PRN ×2 (02:53)
[2018-05-05] MEDS ORDERED: *HR* Metoprolol 5 MG/5 ML VIAL IVP PRN ×2 (02:56→18:23)
[2018-05-05] MEDS ORDERED: Nitroglycerin 0.4 MG TAB.SUBL SL PRN (02:58)
[2018-05-05] MEDS ORDERED: Heparin 25,000 UNIT/500 ML D5W 25,000 UNIT/500 ML BAG IVC SCH (03:00)
--- NOTE | 2018-05-05 03:09 | Internal Med History&Physical ---
<WeirJoyTr Venkatesh - Last Filed: 05/05/18 04:02> Date of Encounter: 05/05/18 Time of Encounter: 03:00 Internal Medicine - H&P: HPI Chief complaint: Chest Pain Admitted From: Hospital to Hospital Transfer Plans for Post Hospital Care: Home History of present illness: Mr. Lowry is a 82 year old male with a past medical history of coronary artery disease, GERD, hyperlipidemia, hypertension, CABG in 1997, stents most recently 2 years ago. He presented today for the chief complaint of chest pain. He states he has had chest pain over the last month on exertion that abates with rest. However he states today he got chest pain with exertion that did not relieve with rest, he took nitroglycerin twice before resolved and then he went to the emergency department at [facility]. At no point did he have shortness of breath, diaphoresis, abdominal pain, nausea, vomiting. EKG [facility] demonstrated ST depression and troponin was elevated at 0.16, BNP just over 1000. Patient was transferred here on heparin drip for management of acute coronary syndrome. On arrival patient is entirely asymptomatic. Patient states he has never smoked or drank or done drugs. He denies family history of cardiac issues in mom or dad or siblings. Past Med Surg Social Fam HX - Past Medical History Medical history: coronary artery disease, GERD, hyperlipidemia, hypertension Psychiatric history: no psych history - Past Surgical History Surgical History: appendectomy, coronary bypass (CABG), herniorrhaphy - Social History Smoking Status: Never smoker Smokeless Tobacco Status: No Alcohol use: none Drug use: none - Family History Father Living Status: Hx Family Cardiac Disorders: No Hx Family Respiratory Disorders: No Hx Family Cancer: Yes Hx Family GI Disorders: Yes (hepatic cancer) Hx Family Endocrine Disorder: No Hx Family Neuromuscular Disorders: No Hx Family Neurologic Disorders: No Hx Family HEENT Disorders: No Hx Family Autoimmune Disorders: No Mother Hx Family Cardiac Disorders: No Internal Medicine - H&P: Meds Aspirin 81 mg PO DAILY tab.chew 06/13/16 [Rx] Clopidogrel [Plavix] 75 mg PO DAILY #30 tablet 06/13/16 [Rx] Atorvastatin Calcium [Lipitor] 20 mg PO DAILY 07/28/16 [History] Isosorbide MONOnitrate (24 HR) [Imdur] 30 mg PO DAILY #30 tab.er.24h 07/28/16 [ Rx] Lisinopril [Zestril] 40 mg PO DAILY #30 tablet 07/28/16 [Rx] Metoprolol Succinate [Toprol Xl] 50 mg PO BID 07/28/16 [History] amLODIPine [Norvasc] 10 mg PO DAILY 07/28/16 [History] hydroCHLOROthiazide [Hydrochlorothiazide] 25 mg PO DAILY 07/28/16 [History] 3 Allergy/AdvReac Type Severity Reaction Status Date / Time [id number]-[id number] Reductase Allergy Intermediate Itching Verified 06/10/16 13:22 Inhibitor [Statins] cephalexin [From Keflex] Allergy Itching Verified 06/10/16 13:22 All Systems PM: A 10-system review of systems was performed and is negative for pertinent findings except as documented above in the HPI. - Constitutional Vitals: Temp Pulse Resp BP Pulse Ox 97.8 F 88 18 217/106 97 05/05/18 02:51 05/05/18 02:51 05/05/18 02:51 05/05/18 02:51 05/05/18 02:51 Exam: Patient in no acute distress Alert and oriented 3 Normal affect Cranial nerves II through XII intact Mucous membranes moist, no JVD Heart in regular rate and rhythm without murmur or gallop Lungs clear to auscultation bilaterally without wheeze or rhonchi or rales Abdomen obese and soft and nontender with normal bowel sounds present Motor and sensation intact in all 4 extremities Bilateral lower extremities Exhibit 1+ pitting edema Skin warm and dry - Assessment and plan (1) Chest pain Current Visit: Yes Status: Acute Assessment and plan: Patient's chief complaint was chest pain elicited with exertion not relieved by rest Patient did not complain of shortness of breath or diaphoresis or chest pain radiation Patient has extensive history of cardiac disease including CABG and stents EKG at [facility] demonstrated ST depression, troponin 0.16 Patient was given nitroglycerin, aspirin, started on heparin drip On arrival patient is currently not experiencing chest pain or shortness of breath KAYCE score 6 Plan Repeat EKG Trending troponins every 6 hours Continue heparin drip Cardiology consultation in the morning Continuous cardiac surgeon Vital checks every 4 hours Nothing by mouth in case of cardiology intervention Qualifiers: Chest pain type: chest pain due to myocardial ischemia Ischemic chest pain type: unstable angina pectoris Qualified Code(s): I20.0 - Unstable angina (2) Elevated troponin Current Visit: Yes Status: Acute Assessment and plan: Plan as seen above (3) Hypertensive urgency Current Visit: Yes Status: Acute Assessment and plan: Patient presented with blood pressure 190s over 110s On my exam patient's blood pressure was 200s over 110s Patient denied chest pain or shortness of breath or diaphoresis CBC and BMP do not reveal evidence of end organ damage Lopressor 5 mg IV given once Plan Blood pressure assessment every 4 hours Lopressor 5 mg IV every 6 hours as needed We will resume home oral medications once diet is reinstated (4) CAD (coronary artery disease) Current Visit: No Status: Chronic Assessment and plan: Extensive history of coronary artery disease History of four-vessel CABG in 1997 History of stent placements most recently 2 years ago Currently holding Plavix while on heparin drip Qualifiers: Coronary Disease-Associated Artery/Lesion type: bypass graft [place] vs. transplanted heart: [place] heart Associated angina: with unstable angina Qualified Code(s): I25.700 - Atherosclerosis of coronary artery bypass graft(s) , unspecified, with unstable angina pectoris (5) S/P CABG x 4 Current Visit: No Status: Chronic Assessment and plan: History as seen above (6) Hyperlipidemia Current Visit: No Status: Chronic Assessment and plan: Patient has history of hyperlipidemia, takes Lipitor home We will restart Lipitor once diet is reinstituted Qualifiers: Hyperlipidemia type: unspecified Qualified Code(s): E78.5 - Hyperlipidemia , unspecified - Time Spent With Patient Total time spent is greater than 50% in coordination of care (as documented) at patient's floor/unit and/or counseling patient: <Wil Zaidi - Last Filed: 05/05/18 04:59> Date of Encounter: 05/05/18 Internal Medicine - H&P: HPI History of present illness: Mr. Lowry is a 82 year old male All Systems PM: A 10-system review of systems was performed and is negative for pertinent findings except as documented above in the HPI. - Constitutional Vitals: Temp Pulse Resp BP Pulse Ox 97.8 F 88 18 217/106 97 05/05/18 02:51 05/05/18 02:51 05/05/18 02:51 05/05/18 02:51 05/05/18 02:51 Internal Med - H&P Results - Labs CBC & Chem 7: 05/05/18 03:22 05/05/18 03:22 Labs: Short CBC 05/05/18 Range/Units 03:22 WBC 8.8 (4.3-11.1) K/mcL Hgb 14.5 (12.9-16.9) g/dL Hct 42.3 (37.5-50.1) % Plt Count 209 (140-400) K/mcL Neutrophils # 6.8 (1.6-8.9) K/mcL BMP 05/05/18 03:22 Sodium 129 L Potassium 3.6 Chloride 96 L Carbon Dioxide 26 BUN 17 Creatinine 0.91 Glucose 132 H Calcium 9.5 Cardiac Enzymes 05/05/18 Range/Units 03:22 Troponin I 0.18 H* (< 0.04) ng/mL - Assessment and plan (1) CAD (coronary artery disease) Current Visit: No Status: Chronic Qualifiers: Coronary Disease-Associated Artery/Lesion type: bypass graft [place] vs. transplanted heart: [place] Associated angina: with unstable angina Qualified Code(s): I25.700 - Atherosclerosis of coronary artery bypass graft(s) , unspecified, with unstable angina pectoris (2) S/P CABG x 4 Current Visit: No Status: Chronic (3) Hypertensive urgency Current Visit: Yes Status: Acute (4) Elevated troponin Current Visit: Yes Status: Acute (5) Chest pain Current Visit: Yes Status: Acute Qualifiers: Chest pain type: chest pain due to myocardial ischemia Ischemic chest pain type: unstable angina pectoris Qualified Code(s): I20.0 - Unstable angina (6) Hyperlipidemia Current Visit: No Status: Chronic Qualifiers: Hyperlipidemia type: unspecified Qualified Code(s): E78.5 - Hyperlipidemia , unspecified - Time Spent With Patient Total time spent is greater than 50% in coordination of care (as documented) at patient's floor/unit and/or counseling patient: - Attending Attestation Patient seen and examined. Chart reviewed. Case discussed with resident. Agree with assessment and plan. Patient presented with atypical chest pain and findings of elevated troponin. EKG showed ST depressions in the precordial leads though similar to previous EKG findings. Patient was also found to have an elevated blood pressure with an SBP in the 180s to 200s. Elevated troponins possibly secondary to demand ischemia in the setting of hypertensive urgency versus new NSTEMI. Patient currently chest pain-free. Blood pressure control. Trend troponin. Continue telemetry. Cardiology consult in the morning.
[2018-05-05 03:58] LABS: Basophils % 0.5 %; Eosinophils % 0.5 %; Hematocrit 42.3 % (37.5-50.1); Hemoglobin 14.5 g/dL (12.9-16.9); Immature Granulocytes % 0.3 % (0-4); Lymphocytes # 1.3 K/mcL (0.6-4.6); Lymphocytes % 14.9 %; Mean Corpuscular HGB Conc 34.3 g/dL (31.6-35.5); Mean Corpuscular Hemoglobin 30.9 pg (28.0-33.3); Mean Corpuscular Volume 90.2 fL (83.0-100.0); Mean Platelet Volume 10.4 fL (9.4-12.4); Monocytes # 0.6 K/mcL (0.0-1.3); Monocytes % 6.7 %; Neutrophils # 6.8 K/mcL (1.6-8.9); Platelet Count 209 K/mcL (140-400); Red Blood Count 4.69 M/mcL (4.19-5.50); Red Cell Distribution Width 12.3 % (11.5-14.5); Segmented Neutrophils % 77.1 %
[2018-05-05 04:17] LABS: BUN/Creatinine Ratio 19 (6-26); Blood Urea Nitrogen 17 mg/dL (8-23); Calcium 9.5 mg/dL (8.6-10.3); Carbon Dioxide 26 mEq/L (23-29); Chloride 96 mEq/L (98-107); Glucose 132 mg/dL (70-105); Osmolality,Calculated 271 (280-300); Potassium 3.6 mEq/L (3.5-5.1); Sodium 129 mEq/L (136-145); eGFR For Non-African Americans > 60 (> 60)
[2018-05-05] MEDS ORDERED: *HR* Labetalol 20 MG/4 ML SYRINGE IVP ONE (04:44)
[2018-05-05 05:37] LABS: Heparin anti-factor XA UFH 0.54 IU/mL (0.30-0.70); INR 1.3; Prothrombin Time 14.6 Seconds (9.4-12.1)
[2018-05-05 05:54] LABS: Activated Partial Thrombo Time 118.5 Seconds (26.0-36.0)
[2018-05-05] MEDS: Aspirin 81 MG TAB.CHEW PO SCH (08:54)
[2018-05-05] MEDS: Metoprolol XL (24 HR) Succ 50 MG TAB.ER.24H PO SCH ×2 (08:55→23:16)
[2018-05-05] MEDS: hydroCHLOROthiazide 25 MG TABLET PO SCH (08:55)
[2018-05-05] MEDS: Isosorbide MONOnitrate (24 HR) 30 MG TAB.ER.24H PO SCH (08:55)
[2018-05-05] MEDS: Lisinopril 20 MG TABLET PO SCH (08:55)
--- NOTE | 2018-05-05 09:44 | Cardiology Consult Note ---
<Lida Steven - Last Filed: 05/05/18 11:05> Date of Encounter: 05/05/18 Time of Encounter: 09:00 Assessment and Plan (1) NSTEMI (non-ST elevated myocardial infarction) Current Visit: Yes Status: Acute Troponin elevated at 0.18, 0.44. Chest pain with exertion not relieved with rest. EKG from today appears to be unchanged from July 2016. 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 Inferior STEMI in May 2016 with EF 45%, patent 2/4 bypass grafts (patent SVG to OM 2 and patent FIGUEROA to LAD with occluded SVG to RCA and occluded SVG to ramus) with PTCA/bare metal stent placement in the distal SVG-ramus on dual antiplatelet therapy. Patient on heparin, continue. Received Plavix this morning, no brilinta for now. Continue with aspirin, BB, ACEI, statin. Plan for cardiac catheterization. Keep patient NPO. Continue serial troponin, EKGs, cardiac monitoring. (2) Hypertensive urgency Current Visit: Yes Status: Acute Blood pressures 200s/100s on arrival. Improved to 165/83 s/p lopressor 5mg IV and labetalol 5mg IV. No end organ damage. Continue to monitor and continue home medications. (3) CAD (coronary artery disease) Current Visit: No Status: Chronic CABG x4 in June 1998. Inferior STEMI in May 2016 with EF 45%, patent 2/4 bypass grafts (patent SVG to OM 2 and patent FIGUEROA to LAD with occluded SVG to RCA and occluded SVG to ramus) with PTCA/bare metal stent placement in the distal SVG-ramus on dual antiplatelet therapy Plan as above. Continue aspirin, BB, ACEI, statin. On heparin. Qualifiers: Coronary Disease-Associated Artery/Lesion type: bypass graft [place] vs. transplanted heart: [place] heart Associated angina: with unstable angina Qualified Code(s): I25.700 - Atherosclerosis of coronary artery bypass graft(s) , unspecified, with unstable angina pectoris (4) Hyperlipidemia Current Visit: No Status: Chronic Continue Lipitor. Qualifiers: Hyperlipidemia type: unspecified Qualified Code(s): E78.5 - Hyperlipidemia , unspecified Discussion w patient/family: The assessment and plan as outlined above was discussed with the patient and/or family members who expressed understanding and agreement. All questions were answered. Thank you for involving us in the care of your patient. Please call with any questions. History of Present Illness Consult date: 05/05/18 Requesting physician: Tr Weir Consult reason: ACS NSTEMI Chief complaint: chest pain History of present illness: Mr. Lowry is a 82 year old male with past medical history including CAD with CABG x4 in June 1998, inferior STEMI in May 2016 with EF 45%, patent 2/ 4 bypass grafts (patent SVG to OM 2 and patent FIGUEROA to LAD with occluded SVG to RCA and occluded SVG to ramus) with PTCA/bare metal stent placement in the distal SVG-ramus on dual antiplatelet therapy, hypertension, hyperlipidemia, who presents with a chief complaint of chest pain. He complains of exertional heavy pressure like chest pain occasionally radiating into his left arm for the past three months. States he gets it with activity such as mowing the lawn and walking. Chest pain abates with rest. He complains of associated mild shortness of breath that also improves with rest. Denies abdominal pain, nausea, vomiting , diaphoresis, lightheadedness, dizziness, orthopnea, or lower extremity swelling. He states yesterday he developed exertional chest pain that did not improve with rest. It lasted a couple of hours despite taking a nitroglycerin. He called EMS and was taken to [facility]. Troponin was elevated at 0.16 and EKG at [facility] showed ST depressions. He was started on heparin drip, nitroglycerin and aspirin, and transfered to [facility] for further management. On arrival, blood pressures noted to be 216/106 with no end organ damage. He was given one dose of lopressor 5mg IV. Blood pressures remained elevated overnight and at 0600 he received labetalol 5mg IV with blood pressures improving to 165/83. This morning , patient states chest pain and shortness of breath is improved. Past Med Surg Social Fam HX - Past Medical History Medical history: coronary artery disease, GERD, hyperlipidemia, hypertension Psychiatric history: no psych history - Past Surgical History Surgical History: appendectomy, coronary bypass (CABG), herniorrhaphy - Social History Smoking Status: Never smoker Smokeless Tobacco Status: No Alcohol use: none Drug use: none - Family History Mother Hx Family Cardiac Disorders: No Father Living Status: Hx Family Cardiac Disorders: No Hx Family Respiratory Disorders: No Hx Family Cancer: Yes Hx Family GI Disorders: Yes (hepatic cancer) Hx Family Endocrine Disorder: No Hx Family Neuromuscular Disorders: No Hx Family Neurologic Disorders: No Hx Family HEENT Disorders: No Hx Family Autoimmune Disorders: No Medications and Allergies Aspirin 81 mg PO DAILY tab.chew 06/13/16 [Rx] Clopidogrel [Plavix] 75 mg PO DAILY #30 tablet 06/13/16 [Rx] Isosorbide MONOnitrate (24 HR) [Imdur] 30 mg PO DAILY #30 tab.er.24h 07/28/16 [ Rx] Lisinopril [Zestril] 40 mg PO DAILY #30 tablet 07/28/16 [Rx] Metoprolol Succinate [Toprol Xl] 50 mg PO BID 07/28/16 [History] hydroCHLOROthiazide [Hydrochlorothiazide] 25 mg PO DAILY 07/28/16 [History] Atorvastatin [Lipitor] 10 mg PO HS 05/05/18 [History] Pantoprazole Sodium 40 mg PO QPM 05/05/18 [History] 3 Allergy/AdvReac Type Severity Reaction Status Date / Time [id number]-Fkq Reductase Allergy Intermediate Itching Verified 06/10/16 13:22 Inhibitor [Statins] cephalexin [From Keflex] Allergy Itching Verified 06/10/16 13:22 All Systems Review: The remainder of the systems were reviewed and are negative - Constitutional Constitutional: headache(s), no chills, no fever(s), no lethargy, no weakness - EENT Eyes: no blurred vision, no loss of vision Nose, mouth and throat: no dysphagia, no sore throat - Cardiovascular Cardiovascular: chest pain at rest, chest pain with exertion, dyspnea on exertion, no diaphoresis, no leg edema, no orthopnea - Respiratory Respiratory: cough, no dyspnea - Gastrointestinal Gastrointestinal: no abdominal pain, no constipation, no diarrhea, no nausea - Genitourinary Genitourinary: no dysuria - Musculoskeletal Musculoskeletal: no back pain, no muscle weakness - Integumentary Integumentary: no rash - Neurological Neurological: no dizziness, no numbness, no tingling - Hematological/Lymphatic Hematologic/Lymphatic: no easy bruising Physical Examination Vital Signs, Last 4 Hours Temp Pulse Resp BP Pulse Ox 05/05/18 07:10 98.2 F 80 18 165/83 98 05/05/18 06:44 98.4 F 86 16 184/101 96 General: Conversant, No Apparent Distress HEENT: Atraumatic, Normocephaly, Mucus Membranes Moist Neck: No JVD, Normal carotid pulses Cardiac: Reg Rate and Rhythm, Normal S1 and S2, No Murmur Lungs: Normal Breath Sounds, No Wheeze, Rales, Rhonchi Neuro: Alert and responsive, No focal deficits noted Abdomen: Soft, Non-Tender Skin: No rashes noted on visualized skin Musculoskeletal: No Chest Wall Tenderness Extremities: No Edema, Normal Pulses (bilateral radial pulses equal) Results 05/05/18 03:22 05/05/18 03:22 Lab Results 05/05/18 05/05/18 05/05/18 03:22 03:22 03:22 WBC 8.8 Hgb 14.5 Hct 42.3 Plt Count 209 INR 1.3 APTT 118.5 H* Sodium Potassium Chloride Carbon Dioxide BUN Creatinine Glucose Calcium Troponin I 0.18 H* 05/05/18 05/05/18 03:22 08:18 WBC Hgb Hct Plt Count INR APTT Sodium 129 L Potassium 3.6 Chloride 96 L Carbon Dioxide 26 BUN 17 Creatinine 0.91 Glucose 132 H Calcium 9.5 Troponin I 0.44 H* - EKG Interpretation EKG results cardiology: personally reviewed (EKG from 05/05/18 showed sinus rhythm with rate 77 and first degree AV block, RBBB. T wave inversions in V1, V2 , V3, V4, lead III. This appears to be unchanged from EKG on 07/2016. No ST elevations noted.) Consult Discharge Plan - Plan Referrals: Stef Javier DO [Primary Care Provider] - <Evelio Mathis - Last Filed: 05/05/18 11:56> Date of Encounter: 05/05/18 - Attending Attestation Patient was seen and evaluated independently by me. Findings, assessment and plan were discussed at length with patient, questions answered. Agree with nurse practitioner's documentation. Addition as follows, 82 yoCM ho CABG 1997 last cath [id number] occluded SVG-RCA and SVG-RI, patent FIGUEROA -LAD, SVG-OM, Rx BMS-SVG-RI. (another [facility] wks later in [place] no PCI) P/w chest pain on exertion 3-4 months, became constant yesterday with BP 200s/ 100s. CP gradually resolved after NTG SL and BP ctr 150s/70s. No dynamic ECG changes, old RBBB. Trop peaked 0.4. TTE [id number] EF 55-60%, RV nl mild MR, no PH. Able to lie flat, no O2, no JVD, CTA, RR, no M/G/R, NT, no LE edema Cr 0.9, Hb 14 No bleeding, no surgery planned A: NSTEMI type I, no contraindication for LHC, no indication for mechanical support or PPM CAD s/p CABG 09/21 patent [id number] after BMS-SVG-RI HTN P: LHC, NPO pt already had ASA and plavix heparin drip BP ctr Evelio Mathis MD, PhD Assessment and Plan Discussion w patient/family: The assessment and plan as outlined above was discussed with the patient and/or family members who expressed understanding and agreement. All questions were answered. Thank you for involving us in the care of your patient. Please call with any questions. History of Present Illness History of present illness: Mr. Lowry is a 82 year old male All Systems Review: The remainder of the systems were reviewed and are negative Physical Examination Vital Signs, Last 4 Hours Temp Pulse Resp BP Pulse Ox 05/05/18 11:16 97.9 F 73 18 154/77 96 Results 05/05/18 03:22 05/05/18 03:22 Lab Results 05/05/18 05/05/18 05/05/18 03:22 03:22 03:22 WBC 8.8 Hgb 14.5 Hct 42.3 Plt Count 209 INR 1.3 APTT 118.5 H* Sodium Potassium Chloride Carbon Dioxide BUN Creatinine Glucose Calcium Troponin I 0.18 H* 05/05/18 05/05/18 03:22 08:18 WBC Hgb Hct Plt Count INR APTT Sodium 129 L Potassium 3.6 Chloride 96 L Carbon Dioxide 26 BUN 17 Creatinine 0.91 Glucose 132 H Calcium 9.5 Troponin I 0.44 H*
--- NOTE | 2018-05-05 10:04 | Event Note ---
Date of Encounter: 05/05/18 Time of Encounter: 10:04 Mr. Lowry is a 82 year old male with a past medical history of coronary artery disease, GERD, hyperlipidemia, hypertension, CABG in 1997, stents most recently 2 years ago Admitted and being managed for HTN Urgency with elevated troponin and suspicion of NSTEMI His blood pressure is better controlled at this time with resumption of home medications. He denies any chest pain at time of review. Denies shortness of breath, denies nausea or vomiting or abdominal pain. He is on heparin infusion and is on aspirin and Plavix, beta blockers as well as ONOFRE inhibitor as at home. Physical examination is unremarkable , chest wall is nontender Cardiology evaluation is pending Continue current management
[2018-05-05] MEDS ORDERED: ISOVUE-370 200 ML INFUS..BTL IV ONE ×2 (15:43→17:06)
[2018-05-05] MEDS ORDERED: Heparin 1,000 UNITS/500 mL 500 ML ONE (15:43)
[2018-05-05] MEDS ORDERED: 0.9 % Sodium Chloride 1,000 ML ONE (15:43)
[2018-05-05] MEDS ORDERED: *HR* Heparin 10,000 UNIT/10 ML VIAL ONE (15:43)
--- NOTE | 2018-05-05 15:49 | Pre-Sedation Evaluation ---
Pre-sedation evaluation - Pre-sedation checklist Date of procedure: 05/05/18 Procedure: heart cath Recent Vitals: Last Vital Signs Temp 97.9 F 05/05/18 11:16 Pulse 73 05/05/18 11:16 Resp 18 05/05/18 11:16 BP 154/77 05/05/18 11:16 Pulse Ox 96 05/05/18 11:16 H&P (including ROS) documented in medical record: Yes Previous reaction to sedatives/anesthetics: No Dietary Status: NPO 6 hours prior to procedure Airway Assessment: Patient can open mouth completely, TMJ function normal, Micrognathia (under-bite, receding chin) absent, Neck with adequate range of motion Dentition: No loose teeth or bridges Possible difficult airway: No ASA Classification *see protocol: CLASS II-Mild systemic disease Cardiac Registry (Cardio Only) - Functional Capacity Functional Capacity: < 4 METS - Clincal Frailty Scale Clinical Frailty Scale: Vulnerable
[2018-05-05] MEDS ORDERED: Nitroglycerin 1,000 MCG/10 ML VIAL IV ONE (15:51)
[2018-05-05] MEDS ORDERED: *HR* FentaNYL (PF) 100 MCG/2 ML VIAL ONE (16:09)
[2018-05-05] MEDS ORDERED: *HR* Midazolam HCl 2 MG/2 ML VIAL ONE (16:10)
[2018-05-05] MEDS ORDERED: *HR* Bivalirudin 250 MG VIAL IVC ONE ×2 (16:33→17:03)
[2018-05-05] MEDS ORDERED: 0.9 % Sodium Chloride 1,000 ML IVC SCH (17:45)
--- NOTE | 2018-05-05 17:50 | Invasive Diagnostic Lab Proc ---
Name: Aniket Lowry Date of Study: 05/05/2018 Date: 1935 Ht: 70.9in Medical Record#: [id number] Age: 82 Wt: 192.24lb Gender: Male BSA: 2.07 Order #: [id number] BMI: 26.91 Physicians Procedure Physician: Ginger Dietrich MD, [facility] Referring MD: Referring MD: Staff Name Position Time In Kane Mayen RN Superintendent Greens 04:12 PM Anthony Luna RN Monitor 04:12 PM Sites, Selena RT (R) Scrub 04:12 PM Indications Indication Non-Stemi Procedures Performed Procedure L HRT ART/GRFT ANGIO PRQ CARD HECTOR STENT W/ANGIO 1 VSL Pre-Procedure Checklist Informed consent is complete signed and on chart. H&P is on chart. ID band is on and ID verified with patient. Patient NPO for procedure The procedure was described for the patient and questions were answered. ECG is on chart. Plan of Care Patient will tolerate the procedure without complications. Adequate level of comfort will be maintained. Hemodynamics will remain stable Patient will recover from procedure without complications. Respiratory function will be maintained. Cardiac rhythm will remain stable. Patient temperature will be maintained. Patient and/or family have verbalized understanding of the procedure. Patient Education Chief Complaint/Reason for Test: Cardiac Cath Developmental Category: Geriatric (65+ years) Developmentally Appropriate for Age: Yes Learning Barriers: None Education Needs: Procedure Education Method: Verbal Information Taught: Cardiac Cath Educational Evaluation: Able to repeat information Intravenous Access Time IV Size Location DC'd Fluid/Drip Rate Units RN 20g 1 1/4" Patent On Arrival Lt Antecubital 0.9NaCl Kane Mayen RN Allergies Simvastatin Fluvastatin Pitavastatin Atorvastatin cephalexin Dsqxizp-Gft-Qqr Reductase Inhibitor Vital Signs Time BP (mmHg) HR (bpm) O2 Sat. RR (bpm) LOC 04:14 PM / % 5 = Fully awake and oriented or at pre-proc level 04:14 PM 197 / 106 86 98 % 19 04:18 PM 178 / 97 87 100 % 15 04:23 PM 176 / 106 86 100 % 19 04:28 PM 152 / 87 80 99 % 16 04:33 PM 146 / 81 83 98 % 21 04:38 PM 153 / 85 86 99 % 17 04:43 PM 164 / 96 83 99 % 04:48 PM 175 / 96 85 99 % 21 04:53 PM 164 / 91 86 100 % 19 04:58 PM 171 / 95 78 99 % 17 05:03 PM 109 / 59 72 99 % 17 05:08 PM 107 / 63 73 97 % 11 Procedural Medications Time Medication Dose Units Method Given By 04:14 PM Oxygen 2 L/min nasal cannula Kane Mayen RN 04:14 PM Versed 1 mg Intravenous Kane Mayen RN 04:14 PM Fentanyl 25 mcg Intravenous Kane Mayen RN 04:25 PM Lidocaine 2% 19 ml Subcutaneous Ginger Dietrich MD, FACC 04:26 PM Versed 1 mg Intravenous Kane Mayen RN 04:26 PM Fentanyl 25 mcg Intravenous Kane Mayen RN 04:37 PM Angiomax 0.75mg/kg bolus: 13 ml Intravenous Kane Mayen RN 04:38 PM Angiomax 1.75mg/kg/hr: 30 ml Intravenous Kane Mayen RN 05:03 PM Nitroglycerin 200 mcg Intracoronary Ginger Dietrich MD, FACC 05:20 PM Plavix 300 mg Orally Kane Mayen RN ASA Classification: CLASS II- Mild systemic disease (i.e. well-controlled diabetes, hypertension, asthma, cigarette smoking) Sherri Score Preprocedure Postprocedure Activity Activity Circulation Circulation Consciousness Consciousness O2 Saturation O2 Saturation Respiratory Respiratory Total Score Total Score Contrast Agent: Isovue Diagnostic Contrast: 131 ml Total Contrast: 131 ml Fluoro Dose: 4941 mGy Procedure Log Time Note Enter By 04:11 PM Case Start 04:11 PM CathStat 04:11 PM Recorded ECG: HR=95 Condition=Condition 1 04:12 PM Pt arrived to geotechnical laboratory technician 2 [facility] 04[facility] PM Kane Mayen RN Position: Superintendent Greens [facility]: 16:12 [facility] 04[facility] PM Anthony Luna RN Position: Monitor Time in: 16:12 [facility] 04:12 PM Selena Bell RT (R) Position: Scrub Time in: 16:12 [facility] 04[facility]12 PM Patient charges- Angio tray pack, Navilyst 3mm J, Pulse Oximetry and ACIST tubing and transducer [facility] 04:12 PM IV Supplies used: J loop Angio Cath. [facility] 04:12 PM Hair removed from procedure site in procedure lab using clippers. Bilateral groin prepped with Chloraprep by Florina Ba (R), then patient was draped. Skin intact. [facility] 04:12 PM ASA Class CLASS II- Mild systemic disease (i.e. well-controlled diabetes, hypertension, asthma, cigarette smoking) [facility] 04:12 PM Meet and greet completed [facility] 04:12 PM Sign in performed according to hospital policy. Informed consent was obtained. [facility] :13 PM Procedure start 16:13 [facility] :13 PM Vitals capture started with the following parameters, Patient=Adult, Interval=5 min, Initial Wvjaavmj=195 mmHg, Deflation Rate=5 mmHg, Cuff placed on Right Arm 04:14 PM Time: 16:14 Oxygen on at 2 L/min per nasal cannula by Kane Mayen RN [facility] 04:14 PM HR=86 bpm, ZAIH=781/106 mmhg, SpO2=98.0 %, Resp=19 B/min, Comment=NSR 04:14 PM Time: 16:14 Patient comfortable and pain free: Yes :14 PM Time: 16:14LOC: 5 = Fully awake and oriented or at pre-proc level ced 04:14 PM Time: 16:14 Versed 1 mg Intravenous Given by Kane Mayen RN [facility] 04:15 PM Time: 16:14 Fentanyl 25 mcg Intravenous [facility] 04:18 PM HR=87 bpm, YGCB=658/97 mmhg, CtL3=343.0 %, Resp=15 B/min, Comment=NSR 04:23 PM HR=86 bpm, BQKC=314/106 mmhg, JnY0=236.0 %, Resp=19 B/min 04:23 PM Clinical Presentation: Unstable angina [facility] 04:23 PM Time out was performed according to hospital policy. Conscious sedation and anesthesia was achieved (see medication log with in this report above) ced 04: PM Time: 16:25 19 ml Lidocaine 2% to right groin Subcutaneous Given by Ginger Dietrich MD, [facility] ced: PM Time: 16:26 Versed 1 mg Intravenous Given by [facility] 04: PM Time: 16:26 Fentanyl 25 mcg Intravenous Given by Faheem, Kane RN [facility] 04:26 PM Access obtained by percutaneous puncture. 5Fr 10cm Terumo [place] sheath placed in right Femoral artery. [id number] [facility] 04:27 PM 0.035 145cm Navilyst 3mmJ wire [id number] [facility] 04:27 PM 5Fr FL 4 catheter inserted over the wire [facility]ed[facility] 04:28 PM LCA angiography performed in multiple views. [facility] 04:28 PM Catheter removed [facility] 04:28 PM 5Fr FR 4 catheter inserted over the wire [facility]ed[facility] 04:28 PM HR=80 bpm, QHCG=813/87 mmhg, SpO2=99.0 %, Resp=16 B/min 04:29 PM Recorded Pressure: Ao, HR=82, Condition=Condition 1 (Aorta) Ao 125/44/87 04:29 PM RCA angiography performed in multiple views. [facility]ed[facility] 04:30 PM SVG to the 2nd OM angio performed in multiple views. [facility] 04:33 PM Catheter removed [facility] 04:33 PM 5Fr IM catheter inserted over the wire [id number] [facility] 04:33 PM Left BAR to the LAD angio performed in multiple views. [facility] 04:33 PM HR=83 bpm, QRLX=565/81 mmhg, SpO2=98.0 %, Resp=21 B/min 04:34 PM Pressure channel 1 zero failed. 04:35 PM Pressure channel 1 zeroed. 04:35 PM Recorded Pressure: LV, HR=81, Condition=Condition 1 (Left Ventricle) LV 141/-9/-1 04:35 PM Recorded Pressure: LV, Ao, HR=81, Condition=Condition 1 (Left Ventricle) LV 115/13/16, (Aorta) Ao 121/60/88 04:36 PM Catheter removed [facility] 04:36 PM 5Fr Pigtail catheter inserted over the wire [facility] 04:36 PM Catheter crossed the aortic valve and was selectively placed in the left ventricle. Pressures recorded on pullback for left heart catheterization. [facility]ed[facility] 04:36 PM Bolus angiogram of left Ventricle complete: 8 ml/sec for a total of 24 mls ced[facility] 04:37 PM Catheter removed [facility] 04:37 PM Sheath exchanged for a 6 Fr 11 cm Cordis Denise sheath [id number] [facility] 04:37 PM 6Fr JR 4 Cordis guide catheter was used to cannulate the PCI vessel successfully. reused? No [facility]ed[facility] 04:37 PM Inflation device was opened. [facility] 04:37 PM Time: 16:37 Angiomax 0.75mg/kg bolus: 13 ml Intravenous Given by Kane Mayen RN Renner pump [facility] 04:38 PM Time: 16:38 Angiomax 1.75mg/kg/hr: 30 ml Intravenous Given by Kane Mayen RN Renner pump [facility] 04:38 PM HR=86 bpm, QKFF=265/85 mmhg, SpO2=99.0 %, Resp=17 B/min, EtCO2=35 mmHg 04:39 PM .014 Prowater 180cm guide wire across target lesion- successful. reused? No [facility] 04:43 PM HR=83 bpm, WLUW=406/96 mmhg, SpO2=99.0 % 04:[address] Dietrich spoke with family on patient's condition [facility] 04:48 PM HR=85 bpm, NJJK=797/96 mmhg, SpO2=99.0 %, Resp=21 B/min 04:49 PM Recorded Pressure: Ao, HR=85, Condition=Condition 1 (Aorta) Ao 163/77/114 04:51 PM 2.0 mm x 15 mm Emerge Monorail balloon across target lesion- successful. reused? No ced[facility] 04:52 PM Balloon inflated @ 10 jacky for 20 seconds [facility] 04:53 PM HR=86 bpm, LCWG=675/91 mmhg, YgB5=017.0 %, Resp=19 B/min 04:55 PM 3.0mm x 38mm Synergy drug-eluting stent across target lesion- successful Lot #[id number] cedwards 04:56 PM Stent deployed @ 12 jacky for 30 seconds ced[facility] 04:57 PM Stent balloon reinflated @ 16 jacky for 18 seconds ced[facility] 04:57 PM Stent delivery system removed intact. [facility]ed[facility] 04:58 PM HR=78 bpm, BTSH=436/95 mmhg, SpO2=99.0 %, Resp=17 B/min 04:59 PM 3.0mm x 16mm Synergy drug-eluting stent across target lesion- successful Lot #[id number] cedwards 05:01 PM Stent deployed @ 16 jacky for 30 seconds ced[facility] 05:01 PM Stent balloon reinflated @ 18 jacky for 20 seconds cedwards 05:02 PM Stent delivery system removed intact. [facility] 05:03 PM Time: 17:03 Nitroglycerin 200 mcg Intracoronary Given by Ginger Dietrich MD, [facility] ced[facility] 05:03 PM HR=72 bpm, FYIF=606/59 mmhg, SpO2=99.0 %, Resp=17 B/min 05:05 PM Guide wire removed intact. [facility]ed[facility] 05:07 PM SVG to the 2nd OM angio performed in multiple views. [facility]ed[facility] 05:08 PM Guide catheter removed intact. [facility]ed[facility] 05:08 PM HR=73 bpm, KVYN=683/63 mmhg, SpO2=97.0 %, Resp=11 B/min 05:08 PM Bolus angiogram of left Femoral complete: 4 ml/sec for a total of 7 mls c[facility] 05:09 PM Procedure completed at 17:09 05/05/2018 [facility] 05:09 PM Did you address KAYCE flow and Dominance? Yes [facility]ed[facility] 05:10 PM Sign out completed: Radiation Dose 396.3 mGy, 4940.78 cGy/cm2 Fluoro Time: 9.7 Isovue 370 - 200ml contrast 131 ml given by Ginger Dietrich MD, [facility]. Complications: None. The patient was discharged out of the corn lab technician in stable condition. Cardiac Rehab Consult needed: YesConfirmed administered medications: Yes [facility] 05:11 PM Isovue 370 - 200ml,2 Bottle(s) used. cedwards 05:11 PM Sheath left in place to be pulled on floor/holding areaV+Pad cedwards 05:11 PM Estimated Blood Loss: minimal [facility]ed[facility] 05:11 PM Post ECG NSR [facility] 05:11 PM Post Blood Pressure 107/63 [facility] 05:11 PM Information taught Cardiac Cath and PCI [facility] 05:11 PM Education needs Procedure, Plan of Care, and Disease Process [facility] 05:11 PM Learning barriers :None [facility] 05:11 PM Education Methods Verbal [facility] 05:11 PM Education evaluation Able to repeat information cedwards 05:14 PM Vitals capture stopped. 05:17 PM Lesion found in Ramus. Pre Stenosis: 99 Pre KAYCE Flow: 3: Complete and Brisk Flow/Perfusion ced[facility] 05:20 PM Time: 17:20 Plavix 300 mg Orally Given by Kane Mayen RN [facility] 05:25 PM Site status No bleeding/hematoma - Rt Groin as reported by Kane Mayen RN at 17:25 [facility] 05:25 PM Opsite applied [facility] 05:26 PM Report given to RN Pt taken to 2N Room #6. 17:25 ced[facility] 05:26 PM Plavix, Effient or Brilinta given Yes ced[facility] 05:26 PM Patient out of room: 17:26 [facility]ed[facility] 05:26 PM Family placed in consult room. [facility]ed[facility] 05:26 PM Complications: None cedwards 05:28 PM Lesion found in Proximal RCA. Pre Stenosis: 100 Pre KAYCE Flow: cedwards 05:28 PM Lesion found in Mid LMCA. Pre Stenosis: 90 Pre KAYCE Flow: cedwards 05:28 PM Lesion found in Proximal LAD. Pre Stenosis: 100 Pre KAYCE Flow: cedwards 05:29 PM Lesion found in Proximal Circumflex. Pre Stenosis: 100 Pre KAYCE Flow: cedwards 05:29 PM Coronary Dominance: right cedwards Complications Complication None None Hemodynamics Pressures Site Systolic/A Wave Diastolic/V Wave Mean AO 125 44 87 LV 141 -9 -1 LV 115 13 16 AO 121 60 88 AO 163 77 114 Post Procedure Information Blood Pressure: 107/63 mmHg Rhythm: NSR Post procedural instructions were given Site Checks Time Location Status Staff Sheath In? Note 05:25 PM Rt Groin No bleeding/hematoma Kane Mayen RN YES Pulses Time Site Pre-Procedure Post-Procedure Note Bilateral DP 2+ 2+ Bilateral radial 2+ 2+ Updated by Anthony Luna RN on 05/05/2018 5:44:00 PM electronically signed on 05/05/2018 5:45:09 PM with status of Final
[2018-05-05] MEDS ORDERED: OXYCODONE Oral CONC 10 MG/0.5 ML ORAL.SYG SL ONE (20:56)
[2018-05-05] MEDS ORDERED: *HR* Atropine Sulfate 1 MG/10 ML SYRINGE ONE (21:53)
[2018-05-06 04:35] LABS: Basophils % 0.2 %; Eosinophils % 0.1 %; Hematocrit 39.6 % (37.5-50.1); Hemoglobin 13.5 g/dL (12.9-16.9); Immature Granulocytes % 0.3 % (0-4); Lymphocytes # 1.1 K/mcL (0.6-4.6); Lymphocytes % 11.6 %; Mean Corpuscular HGB Conc 34.1 g/dL (31.6-35.5); Mean Corpuscular Hemoglobin 30.9 pg (28.0-33.3); Mean Corpuscular Volume 90.6 fL (83.0-100.0); Monocytes # 0.7 K/mcL (0.0-1.3); Monocytes % 6.8 %; Neutrophils # 7.9 K/mcL (1.6-8.9); Platelet Count 194 K/mcL (140-400); Red Blood Count 4.37 M/mcL (4.19-5.50); Red Cell Distribution Width 12.4 % (11.5-14.5)
[2018-05-06 04:53] LABS: BUN/Creatinine Ratio 17 (6-26); Blood Urea Nitrogen 16 mg/dL (8-23); Calcium 8.8 mg/dL (8.6-10.3); Carbon Dioxide 27 mEq/L (23-29); Chloride 97 mEq/L (98-107); Glucose 114 mg/dL (70-105); Osmolality,Calculated 278 (280-300); Potassium 4.2 mEq/L (3.5-5.1); Sodium 133 mEq/L (136-145); eGFR For Non-African Americans > 60 (> 60)
[2018-05-06 06:58] VITALS: BP 142/76
[2018-05-06] MEDS: hydroCHLOROthiazide 25 MG TABLET PO SCH (07:57)
[2018-05-06] MEDS: Aspirin 81 MG TAB.CHEW PO SCH (07:57)
[2018-05-06] MEDS: Isosorbide MONOnitrate (24 HR) 30 MG TAB.ER.24H PO SCH (07:57)
[2018-05-06] MEDS: Lisinopril 20 MG TABLET PO SCH (07:57)
[2018-05-06] MEDS: Metoprolol XL (24 HR) Succ 50 MG TAB.ER.24H PO SCH (07:57)
[2018-05-06] MEDS ORDERED: amLODIPine 5 MG TABLET PO SCH (09:00)
--- NOTE | 2018-05-06 09:48 | Cardiology Progress Note ---
<Lida Steven M - Last Filed: 05/06/18 11:08> Date of Encounter: 05/06/18 Time of Encounter: 09:20 Assessment and Plan (1) NSTEMI (non-ST elevated myocardial infarction) Current Visit: Yes Status: Acute Chest pain free. S/p left heart catheterization on 05/05/18 with HECTOR placement in SVG-Ramus. 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 Inferior STEMI in May 2016 with EF 45%, patent 2/4 bypass grafts (patent SVG to OM 2 and patent FIGUEROA to LAD with occluded SVG to RCA and occluded SVG to ramus) with PTCA/bare metal stent placement in the distal SVG-ramus on dual antiplatelet therapy. Continue with aspirin and Plavix. Lipitor increased from 10mg to 20mg. Started on Norvasc. Continue with hydrochlotothiazide, imdur, zestril, toprol XL. Cardiac rehab. Follow up with Cardiology as an outpatient. Appointment will be made. (2) Hypertensive urgency Current Visit: Yes Status: Acute Blood pressures better controlled. No evidence of end organ damage. Continue medications as above. (3) CAD (coronary artery disease) Current Visit: No Status: Chronic Multivessel. Plan as above. Qualifiers: Coronary Disease-Associated Artery/Lesion type: bypass graft [place] vs. transplanted heart: [place] heart Associated angina: with unstable angina Qualified Code(s): I25.700 - Atherosclerosis of coronary artery bypass graft(s) , unspecified, with unstable angina pectoris (4) Hyperlipidemia Current Visit: No Status: Chronic Lipitor increased to 20mg PO qd. Qualifiers: Hyperlipidemia type: unspecified Qualified Code(s): E78.5 - Hyperlipidemia , unspecified Discussion w patient/family: The assessment and plan as outlined above was discussed with the patient and/or family members who expressed understanding and agreement. All questions were answered. Thank you for involving us in the care of your patient. Please call with any questions. Will sign off. Follow up appointment will be made. Subjective Principal diagnosis: NSTEMI Interval history: Patient had a left heart catheterization yesterday. He had a stent placement in the VSG-Ramus. Patient tolerated procedure well without any complications. Right femoral access site appears well. No tenderness, mild ecchymosis present. Patient states he is doing well this morning. Denies chest pain, shortness of breath, lightheadedness, nausea, abdominal pain, diarrhea. States he ambulated in the halls without any chest pain or shortness of breath. Objective Vital Signs, Last 4 Hours Temp Pulse Resp BP Pulse Ox 05/06/18 06:56 97.6 F 76 15 142/76 98 05/06/18 06:00 78 137/73 General: Conversant, No Apparent Distress HEENT: Atraumatic, Normocephaly, Mucus Membranes Moist Neck: No JVD Cardiac: Reg Rate and Rhythm, Normal S1 and S2, No Murmur Lungs: Normal Breath Sounds, No Wheeze, Rales, Rhonchi Neuro: Alert and responsive, No focal deficits noted Abdomen: Soft, Non-Tender Skin: No rashes noted on visualized skin, Other (right femoral cath site with bandage. No active bleeding or drainage. Mild ecchymosis present. No tenderness. ) Musculoskeletal: No Chest Wall Tenderness Extremities: No Edema, Normal Pulses (bilateral radial pulses equal) Results 05/06/18 04:18 05/06/18 04:18 Lab Results 05/05/18 05/06/18 05/06/18 14:28 04:18 04:18 WBC 9.8 Hgb 13.5 Hct 39.6 Plt Count 194 Sodium 133 L Potassium 4.2 Chloride 97 L Carbon Dioxide 27 BUN 16 Creatinine 0.94 Glucose 114 H Calcium 8.8 Troponin I 0.46 H* - Imaging and Cardiology Cardiac cath: report reviewed Consult Discharge Plan - Plan Instructions: Amlodipine (By mouth), Myocardial Infarction (DC), Chest Pain (DC ), Left Heart Catheterization (DC) Referrals: Ginger Dietrich MD [Partnered Physician] - (Office will call patient at home with follow up appointment) Stef Javier DO [Primary Care Provider] - 05/08/18 10:15 am Prescriptions: amLODIPine [Norvasc] 2.5 mg PO DAILY #30 tablet Atorvastatin Calcium [Lipitor] 20 mg PO HS #30 tablet <Evelio Mathis - Last Filed: 05/06/18 12:23> Date of Encounter: 05/06/18 Assessment and Plan Discussion w patient/family: The assessment and plan as outlined above was discussed with the patient and/or family members who expressed understanding and agreement. All questions were answered. Thank you for involving us in the care of your patient. Please call with any questions. Results 05/06/18 04:18 05/06/18 04:18 Lab Results 05/05/18 05/06/18 05/06/18 14:28 04:18 04:18 WBC 9.8 Hgb 13.5 Hct 39.6 Plt Count 194 Sodium 133 L Potassium 4.2 Chloride 97 L Carbon Dioxide 27 BUN 16 Creatinine 0.94 Glucose 114 H Calcium 8.8 Troponin I 0.46 H* - Attending Attestation Patient was seen and evaluated independently by me. Findings, assessment and plan were discussed in detail with patient, questions anwered. Agree with resident physician's documentation. Addition as follows, HECTOR to SVG-RI No complaints, cp, dyspnea, arrhythmia. VSS, no JVD, lying flat, CTA, RR, NT, no LE edema R-groin entry site no hematoma. 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
--- NOTE | 2018-05-06 10:37 | Discharge Summary ---
- NOTES TO OUTPATIENT PROVIDER Notes to Outpatient Provider: 82 M with extensive cardiac hx who presented with complains of CP, with elevated trop and EKG changes, s/p LHC with HECTOR placement in SVG ramus. He is now chest pain free, ambulatory and stable. Lipitor has been increased to 20mg po daily, and Norvasc 2.5mg daily added to his home regimen. Follow up with PCP and Cardiology Orders not resulted at time of discharge: Pending orders 05/05/18 09:22 CL Cardiac Catheterization [CL] Routine 05/06/18 06:00 ECG 12 lead ECG [ECG] AM 0600 Date of Encounter: 05/06/18 Time of Encounter: 10:00 - Discharge Diagnosis (1) NSTEMI (non-ST elevated myocardial infarction) Priority: Primary Status: Acute (2) CAD (coronary artery disease) Priority: Secondary Status: Chronic Qualifiers: Coronary Disease-Associated Artery/Lesion type: bypass graft [place] vs. transplanted heart: [place] heart Associated angina: with unstable angina Qualified Code(s): I25.700 - Atherosclerosis of coronary artery bypass graft(s) , unspecified, with unstable angina pectoris (3) S/P CABG x 4 Priority: Secondary Status: Chronic (4) Hypertensive urgency Priority: Primary Status: Resolved (5) Elevated troponin Priority: Primary Status: Resolved (6) Chest pain Priority: Primary Status: Acute Qualifiers: Chest pain type: chest pain due to myocardial ischemia Ischemic chest pain type: unstable angina pectoris Qualified Code(s): I20.0 - Unstable angina (7) Hyperlipidemia Priority: Secondary Status: Chronic Qualifiers: Hyperlipidemia type: unspecified Qualified Code(s): E78.5 - Hyperlipidemia , unspecified Hospital course: Mr. Lowry is a 82 year old male with a past medical history of coronary artery disease s/p CABGx4 in June 1998., s/p Inferior STEMI in May 2016 with EF 45%, patent 2/4 bypass grafts (patent SVG to OM 2 and patent FIGUEROA to LAD with occluded SVG to RCA and occluded SVG to ramus) with PTCA/bare metal stent placement in the distal SVG-ramus on dual antiplatelet therapy. He has additional hx of GERD, hyperlipidemia, hypertension, CABG in 1997, stents most recently 2 years ago He was admitted and managed for HTN Urgency with elevated troponin and suspicion of NSTEMI He is now S/p left heart catheterization on 05/05/18 with HECTOR placement in SVG- Ramus. He is seen and examined this mrn. he reported compliance with his home meds prior to admission, Norvasc has been added by cardiology team and lipitor increased from 10mg to 20mg po daily He is chest pain free and has no new complains vitals are stable. Discharged home in stable clinical condition , follow up with PCP and cardiology Discharge discussed with: patient - Time Spent with Patient Total time spent providing and/or coordinating discharge services: Greater than 30 minutes (40 mins spent) - Discharge Medications Prescriptions: amLODIPine [Norvasc] 2.5 mg PO DAILY #30 tablet Atorvastatin Calcium [Lipitor] 20 mg PO HS #30 tablet Home Medications: Aspirin 81 mg PO DAILY tab.chew 06/13/16 [Rx] Clopidogrel [Plavix] 75 mg PO DAILY #30 tablet 06/13/16 [Rx] Isosorbide MONOnitrate (24 HR) [Imdur] 30 mg PO DAILY #30 tab.er.24h 07/28/16 [ Rx] Lisinopril [Zestril] 40 mg PO DAILY #30 tablet 07/28/16 [Rx] Metoprolol Succinate [Toprol Xl] 50 mg PO BID 07/28/16 [History] hydroCHLOROthiazide [Hydrochlorothiazide] 25 mg PO DAILY 07/28/16 [History] Pantoprazole Sodium 40 mg PO QPM 05/05/18 [History] Atorvastatin Calcium [Lipitor] 20 mg PO HS #30 tablet 05/06/18 [Rx] amLODIPine [Norvasc] 2.5 mg PO DAILY #30 tablet 05/06/18 [Rx] Allergies/Adverse Reactions: 3 Allergy/AdvReac Type Severity Reaction Status Date / Time Jfbwdia-Rxw-Yws Reductase Allergy Intermediate Itching Verified 06/10/16 13:22 Inhibitor [Statins] cephalexin [From Keflex] Allergy Itching Verified 06/10/16 13:22 Date of admission: 05/05/18 02:19 Primary care physician: Stef Javier DO Consults: 05/05/18 02:49 Consult to Cardiology [CONS] Routine Comment: Consulting Provider: Cardiology Chanel Reason for Consult: ACS NSTEMI Call Completed: No 05/05/18 17:45 Consult to Cardiac Rehabilitation-Phase1 [CONS] Routine Comment: Reason for Consult: post op PCI Call Completed: Yes Discharging clinician: Fan Mittal Anticipated date of discharge: 05/06/18 - Constitutional Vitals: Temp Pulse Resp BP Pulse Ox 97.6 F 76 15 142/76 98 05/06/18 06:56 05/06/18 06:56 05/06/18 06:56 05/06/18 06:56 05/06/18 06:56 General appearance: Present: A&O X 3, no acute distress Exam: see below - Head Head exam: Present: atraumatic, normocephalic - Eye Eye exam: Present: PERRL, conjuntiva pink, sclera anicteric Pupils: Present: PERRL - Neck Neck exam general surgery: Present: supple, trachea midline. Absent: lymphadenopathy - Respiratory Respiratory exam: Present: CTAB. Absent: accessory muscle use, rales, rhonchi, wheezes - Cardiovascular Cardiovascular exam: Present: RRR, +S1, +S2. Absent: diastolic murmur, gallop, rubs, systolic murmur - GI/Abdominal GI/Abdominal exam: Present: normal bowel sounds, soft, no peritoneal signs. Absent: distended, tenderness - Extremities Exam Extremities exam: Present: warm, radial pulses palpable and symmetrical. Absent : calf tenderness, cyanotic, pedal edema - Neurological Exam Neurological exam: Present: CN II-XII intact, oriented X3, no focal deficits. Absent: pronater drift, facial droop, speech deficit - Skin Skin exam: Present: dry, intact - Patient Status Disposition: Home, Self-Care Condition: Fair Functional capacity at discharge: independent ambulation Overall status at discharge: patient is progressing back to baseline - Discharge Instructions Instructions: Amlodipine (By mouth), Myocardial Infarction (DC), Chest Pain (DC ), Left Heart Catheterization (DC) Follow Up With: Ginger Dietrich MD [Partnered Physician] - (Office will call patient at home with follow up appointment) Stef Javier DO [Primary Care Provider] - 05/08/18 10:15 am - Diet and Activity Activity: resume usual activities as tolerated Diet: low fat, low cholesterol, low salt diet
--- NOTE | 2018-05-07 13:53 | Electrocardiograph Report ---
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
--- NOTE | 2018-05-07 16:10 | Electrocardiograph Report ---
[address] [address] Test Date: 2018-05-05 Pat Name: Aniket Lowry Department: 109 Room: 2N06 Gender: M [place] Hand: KAUR : 1935 Requested By: Tr Weir Order Number: [id number] Reading MD: Treasure Stevenson Measurements Intervals [place] Rate: 77 P: 74 MA: 278 QRS: 54 QRSD: 157 T: -7 QT: 410 QTc: 442 Interpretive Statements SINUS RHYTHM WITH FIRST DEGREE AV BLOCK RIGHT BUNDLE BRANCH BLOCK Electronically Signed On 05-07-2018 16:08:47 EDT by Treasure Stevenson
== END 2018-05-06 14:15 | disposition home or self-care (01) ==
LOC: 2ANU → SUATTDRO 02:19 → 2NNU 17:39
PROVIDERS: ADMIT Internal Medicine; ATTEND Internal Medicine

== ENCOUNTER 2020-03-06 19:20 | Observation (INO) ==
[2020-03-06] MEDS ORDERED: Nitroglycerin 0.4 MG TAB.SUBL SL PRN (19:23)
[2020-03-06] MEDS ORDERED: Aspirin 325 MG TABLET PO ONE (19:33)
[2020-03-06 20:07] LABS: INR 1.1
[2020-03-06 20:08] LABS: Basophils # 0.1 K/mcL (0.0-0.2); Basophils % 0.5 %; Eosinophils % 0.3 %; Hematocrit 42.7 % (37.5-50.1); Hemoglobin 14.1 g/dL (12.9-16.9); Immature Granulocytes % 0.5 % (0-4); Lymphocytes # 1.1 K/mcL (0.6-4.6); Lymphocytes % 10.4 %; Mean Corpuscular Hemoglobin 30.5 pg (28.0-33.3); Mean Corpuscular Volume 92.4 fL (83.0-100.0); Mean Platelet Volume 10.5 fL (9.4-12.4); Monocytes # 0.8 K/mcL (0.0-1.3); Monocytes % 7.6 %; Neutrophils # 8.5 K/mcL (1.6-8.9); Platelet Count 211 K/mcL (140-400); Red Blood Count 4.62 M/mcL (4.19-5.50); Red Cell Distribution Width 12.6 % (11.5-14.5); Segmented Neutrophils % 80.7 %; White Blood Count 10.6 K/mcL (4.3-11.1)
[2020-03-06 20:09] LABS: Activated Partial Thrombo Time 30.1 Seconds (26.0-36.0)
[2020-03-06 20:34] LABS: BUN/Creatinine Ratio 21 (6-26); Blood Urea Nitrogen 26 mg/dL (8-23); Calcium 9.3 mg/dL (8.6-10.3); Carbon Dioxide 24 mEq/L (23-29); Chloride 97 mEq/L (98-107); Glucose 128 mg/dL (70-105); Osmolality,Calculated 282 (280-300); Potassium 3.9 mEq/L (3.5-5.1); Sodium 133 mEq/L (136-145); Troponin I < 0.03 ng/mL (< 0.04); eGFR For African Americans > 60 (> 60); eGFR For Non-African Americans 57 (> 60)
[2020-03-06] MEDS ORDERED: Metoprolol XL (24 HR) Succ 50 MG TAB.ER.24H PO ONE (20:55)
[2020-03-06] MEDS ORDERED: Naloxone 0.4 MG/ML INJ IVP PRN (22:09)
[2020-03-07] MEDS ORDERED: *HR* Labetalol 20 MG/4 ML SYRINGE IVP ONE (00:20)
[2020-03-07 02:28] LABS: Hematocrit 39.3 % (37.5-50.1); Hemoglobin 13.2 g/dL (12.9-16.9); Mean Corpuscular HGB Conc 33.6 g/dL (31.6-35.5); Mean Corpuscular Hemoglobin 31.1 pg (28.0-33.3); Mean Corpuscular Volume 92.7 fL (83.0-100.0); Mean Platelet Volume 10.5 fL (9.4-12.4); Platelet Count 184 K/mcL (140-400); Red Blood Count 4.24 M/mcL (4.19-5.50); Red Cell Distribution Width 12.6 % (11.5-14.5); White Blood Count 7.9 K/mcL (4.3-11.1)
[2020-03-07 02:51] LABS: BUN/Creatinine Ratio 21 (6-26); Blood Urea Nitrogen 26 mg/dL (8-23); Calcium 8.9 mg/dL (8.6-10.3); Carbon Dioxide 26 mEq/L (23-29); Chloride 101 mEq/L (98-107); Glucose 138 mg/dL (70-105); Osmolality,Calculated 287 (280-300); Potassium 3.3 mEq/L (3.5-5.1); Sodium 135 mEq/L (136-145); eGFR For African Americans > 60 (> 60); eGFR For Non-African Americans 55 (> 60)
[2020-03-07] MEDS ORDERED: Regadenoson 0.4 MG/5 ML SYRINGE IVP ONE (06:50)
[2020-03-07 12:21] VITALS: BP 175/80
[2020-03-07] MEDS ORDERED: Aspirin 81 MG TAB.CHEW PO SCH (12:28)
[2020-03-07] MEDS ORDERED: Isosorbide MONOnitrate (24 HR) 30 MG TAB.ER.24H PO SCH (12:30)
[2020-03-07] MEDS ORDERED: Metoprolol XL (24 HR) Succ 50 MG TAB.ER.24H PO SCH (21:00)
[2020-03-07] MEDS ORDERED: amLODIPine 5 MG TABLET PO SCH (21:00)
[2020-03-08] MEDS ORDERED: amLODIPine 5 MG TABLET PO SCH (09:00)
[2020-03-08] MEDS ORDERED: Aspirin 81 MG TAB.CHEW PO SCH (09:00)
[2020-03-08] MEDS ORDERED: Loratadine 10 MG TABLET PO SCH (09:00)
[2020-03-08] MEDS ORDERED: hydroCHLOROthiazide 25 MG TABLET PO SCH (09:00)
[2020-03-08] MEDS ORDERED: Isosorbide MONOnitrate (24 HR) 30 MG TAB.ER.24H PO SCH (09:00)
== END 2020-03-07 16:02 | disposition home or self-care (01) ==
LOC: 3BNU 19:20 → EMEROOARM 19:20 → SUATTDRO 21:56 → 3BNU 21:56
PROVIDERS: ADMIT Student in an Organized Health Care Education/Training Program; ATTEND Nurse Practitioner Adult Health

== ENCOUNTER 2021-04-25 22:19 | Inpatient (IN) ==
[2021-04-26] MEDS ORDERED: Perflutren Lipid Microsphere 1.3 ML in 0.9 % Sodium Chloride 8.7 ML IVP PRN (04:33)
[2021-04-26] MEDS ORDERED: Morphine Sulfate 2 MG/ML SYRINGE IVP PRN (04:36)
[2021-04-26] MEDS ORDERED: Acetaminophen 325 MG TABLET PO PRN (04:37)
[2021-04-26] MEDS ORDERED: Naloxone 0.4 MG/ML INJ IVP PRN (04:37)
[2021-04-26] MEDS ORDERED: Ondansetron 4 MG/2 ML VIAL IVP PRN (04:37)
[2021-04-26 05:00] LABS: Basophils # 0.1 K/mcL (0.0-0.2); Basophils % 0.6 %; Eosinophils # 0.1 K/mcL (0.0-0.6); Eosinophils % 1.4 %; Hematocrit 40.5 % (37.5-50.1); Hemoglobin 13.6 g/dL (12.9-16.9); Immature Granulocytes % 0.5 % (0-4); Lymphocytes # 1.1 K/mcL (0.6-4.6); Lymphocytes % 13.5 %; Mean Corpuscular HGB Conc 33.6 g/dL (31.6-35.5); Mean Corpuscular Hemoglobin 30.6 pg (28.0-33.3); Mean Platelet Volume 10.3 fL (9.4-12.4); Monocytes # 0.7 K/mcL (0.0-1.3); Monocytes % 8.4 %; Neutrophils # 5.9 K/mcL (1.6-8.9); Platelet Count 222 K/mcL (140-400); Red Blood Count 4.45 M/mcL (4.19-5.50); Red Cell Distribution Width 12.6 % (11.5-14.5); Segmented Neutrophils % 75.6 %; White Blood Count 7.8 K/mcL (4.3-11.1)
[2021-04-26 05:17] LABS: Alanine Aminotransferase 14 Units/L (7-52); Albumin 3.7 g/dL (3.5-5.7); Albumin/Globulin Ratio 1.5 (1.1-2.2); Alkaline Phosphatase 8 Units/L (34-104); Aspartate Amino Transferase 33 Units/L (13-39); BUN/Creatinine Ratio 23 (6-26); Bilirubin,Total 0.9 mg/dL (0.3-1.0); Blood Urea Nitrogen 20 mg/dL (8-23); Calcium 9.2 mg/dL (8.6-10.3); Carbon Dioxide 24 mEq/L (23-29); Chloride 101 mEq/L (98-107); Chol/HDL Ratio 3.9 (0-4.9); Cholesterol 130 mg/dL (< 200); Globulin 2.5 g/dL (2.4-3.5); Glucose 108 mg/dL (70-105); HDL Cholesterol 33 mg/dL (40-59); LDL Cholesterol,Calculated 82 mg/dL (< 100); Magnesium 1.8 mg/dL (1.6-2.6); Osmolality,Calculated 281 (280-300); Potassium 3.4 mEq/L (3.5-5.1); Sodium 134 mEq/L (136-145); Total Protein 6.2 g/dL (6.4-8.9); Triglycerides 77 mg/dL (< 150); eGFR For African Americans > 60 (> 60); eGFR For Non-African Americans > 60 (> 60)
[2021-04-26 05:21] LABS: Troponin I 3.92 ng/mL (< 0.04)
[2021-04-26 05:30] LABS: Thyroid Stimulating Hormone 6.741 mcIU/mL (0.340-5.600)
[2021-04-26] MEDS ORDERED: Potassium Chloride Elixir 20 MEQ/15 ML UDC PO ONE (05:30)
[2021-04-26 05:46] LABS: Folate > 22.3 ng/mL (3.0-16.0); Vitamin B12 462 pg/mL (250-1100)
[2021-04-26] MEDS ORDERED: Nitroglycerin 0.4 MG TAB.SUBL SL PRN (06:04)
[2021-04-26 06:32] LABS: INR 1.3; Prothrombin Time 14.6 Seconds (9.4-12.1)
[2021-04-26 06:34] LABS: Activated Partial Thrombo Time 30.6 Seconds (26.0-36.0)
[2021-04-26] MEDS ORDERED: *HR* Heparin 5,000 UNIT/ML VIAL IVP PRN ×2 (06:35)
[2021-04-26] MEDS ORDERED: *HR* Heparin 5,000 UNIT/ML VIAL IVP ONE (06:35)
[2021-04-26] MEDS ORDERED: Heparin 25,000UNIT/250ML 1/2NS 25,000 UNIT/250 ML IV.SOLN IVC SCH (06:45)
[2021-04-26] MEDS: Aspirin Enteric Coated 81 MG Tablet PO SCH (07:24)
[2021-04-26] MEDS: Famotidine 20 MG TABLET PO SCH ×2 (07:30→20:05)
[2021-04-26 08:03] LABS: Estimated Average Glucose 123 mg/dl; Hemoglobin A1C 5.9 %
[2021-04-26] MEDS ORDERED: amLODIPine 5 MG TABLET PO SCH (09:00)
[2021-04-26] MEDS: Metoprolol XL (24 HR) Succ 25 MG TAB.ER.24H PO SCH (10:20)
[2021-04-26] MEDS ORDERED: 0.9 % Sodium Chloride 1,000 ML ONE ×2 (10:47→10:49)
[2021-04-26] MEDS ORDERED: Heparin 1,000 UNITS/500 mL 500 ML ONE ×2 (10:47→12:34)
[2021-04-26] MEDS ORDERED: *HR* Heparin 10,000 UNIT/10 ML VIAL ONE (10:47)
[2021-04-26] MEDS ORDERED: *HR* Midazolam HCl 2 MG/2 ML VIAL ONE (10:47)
[2021-04-26] MEDS ORDERED: *HR* FentaNYL (PF) 100 MCG/2 ML VIAL ONE (10:47)
[2021-04-26] MEDS ORDERED: ISOVUE-370 200 ML INFUS..BTL ONE ×2 (10:47→12:47)
[2021-04-26] MEDS ORDERED: Nitroglycerin 1,000 MCG/5 ML VIAL IV ONE (10:48)
[2021-04-26] MEDS: 0.9 % Sodium Chloride 1,000 ML IVC SCH (13:59)
[2021-04-27] MEDS: 0.9 % Sodium Chloride 1,000 ML IVC SCH (00:11)
[2021-04-27] MEDS ORDERED: Potassium Chloride Elixir 20 MEQ/15 ML UDC PO ONE (08:24)
[2021-04-27 08:33] LABS: BUN/Creatinine Ratio 22 (6-26); Blood Urea Nitrogen 20 mg/dL (8-23); Calcium 8.9 mg/dL (8.6-10.3); Carbon Dioxide 26 mEq/L (23-29); Chloride 104 mEq/L (98-107); Glucose 97 mg/dL (70-105); Osmolality,Calculated 289 (280-300); Potassium 3.8 mEq/L (3.5-5.1); Sodium 138 mEq/L (136-145); eGFR For African Americans > 60 (> 60); eGFR For Non-African Americans > 60 (> 60)
[2021-04-27] MEDS: Aspirin Enteric Coated 81 MG Tablet PO SCH (08:53)
[2021-04-27] MEDS: Famotidine 20 MG TABLET PO SCH (08:53)
[2021-04-27] MEDS: Metoprolol XL (24 HR) Succ 25 MG TAB.ER.24H PO SCH (08:53)
[2021-04-27] MEDS ORDERED: amLODIPine 5 MG TABLET PO SCH (09:00)
[2021-04-27 09:16] LABS: Hematocrit 41.6 % (37.5-50.1); Hemoglobin 13.7 g/dL (12.9-16.9); Mean Corpuscular HGB Conc 32.9 g/dL (31.6-35.5); Mean Corpuscular Volume 94.1 fL (83.0-100.0); Mean Platelet Volume 10.6 fL (9.4-12.4); Platelet Count 218 K/mcL (140-400); Red Blood Count 4.42 M/mcL (4.19-5.50)
[2021-04-27 11:31] VITALS: BP 160/73; PULSE 76; TEMP 97.5; O2SAT 100
[2021-04-27] MEDS ORDERED: FLU Vac QV 21-22 (6Month+)/PF 0.5 ML SYRINGE IM ONE (12:52)
== END 2021-04-27 13:16 | disposition home or self-care (01) | DRG 250 ==
LOC: 3NENU → SUATTDRO 04-26 03:19
PROVIDERS: ADMIT Student in an Organized Health Care Education/Training Program; ATTEND Hospitalist